=== PATIENT | female | born 1930 | race Caucasian/White ===

== ENCOUNTER 2018-03-03 08:31 | Emergency (ER) | payer MEDICARE, OTHER ==
[2018-03-03 08:35] VITALS: BP 159/75; PULSE 64; RESP 18; TEMP 98.1
--- NOTE | 2018-03-03 08:43 | ED ---
Skin/Abscess/FB HPI - General Chief complaint: Skin/Abscess/Foreign Body Stated complaint: BUG BITE RIGHTT FOOT Time Seen by Provider: 03/03/18 08:36 Source: patient, RN notes reviewed Mode of arrival: ambulatory Limitations: no limitations - History of Present Illness Initial comments: 87-year-old female presents emergency Department chief complaint of right foot pain and rash. Patient states that it's red, swollen. Patient states that she has small insect bite which has gotten worse. She states only hurts in the top of her foot. She denies any trauma. She states that the started with a small bump and has spread. She states that she is not a diabetic. She's been trying cool compresses with no relief. Patient reports no calf pain no ankle pain. - Related Data Home Medications Medication Instructions Recorded Confirmed Levothyroxine Sodium [Synthroid] 112 mcg PO DAILY 08/20/14 08/20/14 Losartan/Hydrochlorothiazide 1 each PO DAILY 08/20/14 08/20/14 [Losartan-Hctz 50-12.5 mg Tab] Metoprolol Succinate [Toprol XL] 100 mg PO DAILY 08/20/14 08/20/14 Warfarin [Coumadin] 2.5 mg PO DIRECTED 08/20/14 08/20/14 Warfarin [Coumadin] 5 mg PO DIRECTED 08/20/14 08/20/14 Previous Rx's Medication Instructions Recorded Cephalexin [Keflex] 500 mg PO Q6HR #28 cap 03/03/18 predniSONE 50 mg PO DAILY #3 tab 03/03/18 Allergies Allergy/AdvReac Type Severity Reaction Status Date / Time No Known Allergies Allergy Verified 03/03/18 08:35 Review of Systems ROS Statement: Those systems with pertinent positive or pertinent negative responses have been documented in the HPI. ROS Other: All systems not noted in ROS Statement are negative. Past Medical History Past Medical History: Deep Vein Thrombosis (DVT), Hypertension, Thyroid Disorder History of Any Multi-Drug Resistant Organisms: None Reported Past Surgical History: Appendectomy Past Psychological History: No Psychological Hx Reported Smoking Status: Never smoker Past Alcohol Use History: None Reported Past Drug Use History: None Reported General Exam Limitations: no limitations General appearance: alert, in no apparent distress Head exam: Present: atraumatic, normocephalic, normal inspection Respiratory exam: Present: normal lung sounds bilaterally. Absent: respiratory distress, wheezes, rales, rhonchi, stridor Cardiovascular Exam: Present: regular rate, normal rhythm, normal heart sounds. Absent: systolic murmur, diastolic murmur, rubs, gallop, clicks Extremities exam: Present: other (Pulses equal bilaterally there is mild tenderness over the area of erythema) Course Vital Signs 03/03/18 08:33 Temperature 98.1 F Pulse Rate 64 Respiratory 18 Rate Blood Pressure 159/75 O2 Sat by Pulse 96 Oximetry Medical Decision Making - Medical Decision Making 84-year-old female presented for pain and rash to her right foot. Patient appears to have localized reaction with cellulitis from insect bite. Patient was placed on 3 days of prednisone and 7 days of Keflex. Patient will continue Tylenol and cool compresses. She'll follow-up with her PCP and return for any worsening symptoms. Disposition Clinical Impression: Insect bite of foot with local reaction, Cellulitis of foot Disposition: HOME SELF-CARE Condition: Stable Instructions: Cellulitis (ED) Additional Instructions: Please return to the Emergency Department if symptoms worsen or any other concerns. Prescriptions: Cephalexin [Keflex] 500 mg PO Q6HR #28 cap predniSONE 50 mg PO DAILY #3 tab Is patient prescribed a controlled substance at d/c from ED?: No Referrals: Garcia Hastings MD [Primary Care Provider] - 1-2 days Time of Disposition: 08:43
== END 2018-03-03 08:51 | disposition home or self-care (01) ==
LOC: EC 08:31
DX: S90.861A Insect bite (nonvenomous), right foot, initial encounter (principal); L03.115 Cellulitis of right lower limb; I10 Essential (primary) hypertension; E07.9 Disorder of thyroid, unspecified; Z86.718 Personal history of other venous thrombosis and embolism; Z79.01 Long term (current) use of anticoagulants; Z79.899 Other long term (current) drug therapy; W57.XXXA Bitten or stung by nonvenomous insect and other nonvenomous arthropods, initial encounter; Y92.009 Unspecified place in unspecified non-institutional (private) residence as the place of occurrence of the external cause
CPT/HCPCS: 99282

== ENCOUNTER 2022-01-04 19:32 | Inpatient (IN) | payer MEDICARE ==
--- NOTE | 2022-01-04 21:00 | XR ---
EXAMINATION TYPE: XR lumbar spine 2 or 3V DATE OF EXAM: 01/04/2022 COMPARISON: NONE HISTORY: TECHNIQUE: 3 views FINDINGS: Back pain IMPRESSION: The lumbar vertebra have normal alignment. There is degenerative mild disc space narrowin g throughout the lumbar spine. No significant compression deformity. Posterior elements are intact. S acroiliac joints are intact. Abdominal aorta is atheromatous. IMPRESSION: Multilevel spondylotic changes. No fracture
[2022-01-04] MEDS ORDERED: MORPHINE SULFATE 4 MG/ML SYRINGE IM STA (21:24)
--- NOTE | 2022-01-04 21:27 | ED ---
Back Pain HPI - General Chief Complaint: Back Pain/Injury Stated Complaint: Back Pain Time Seen by Provider: 01/04/22 20:44 Source: patient Limitations: no limitations - History of Present Illness Complaint: back pain Onset/Timin -: hour(s) Similar Symptoms Previously: No Place: home Radiation: buttocks Severity: moderate Quality: other (unAble to characterize) Consistency: constant Worsens With: movement, sitting upright Associated Symptoms: denies other symptoms - Related Data Home Medications Medication Instructions Recorded Confirmed Levothyroxine Sodium [Synthroid] 112 mcg PO DAILY 08/20/14 08/20/14 Losartan/Hydrochlorothiazide 1 each PO DAILY 08/20/14 08/20/14 [Losartan-Hctz 50-12.5 mg Tab] Metoprolol Succinate [Toprol XL] 100 mg PO DAILY 08/20/14 08/20/14 Warfarin [Coumadin] 2.5 mg PO DIRECTED 08/20/14 08/20/14 Warfarin [Coumadin] 5 mg PO DIRECTED 08/20/14 08/20/14 Previous Rx's Medication Instructions Recorded Cephalexin [Keflex] 500 mg PO Q6HR #28 cap 03/03/18 predniSONE 50 mg PO DAILY #3 tab 03/03/18 Allergies Allergy/AdvReac Type Severity Reaction Status Date / Time No Known Allergies Allergy Verified 01/04/22 19:37 Review of Systems ROS Statement: Those systems with pertinent positive or pertinent negative responses have been documented in the HPI. ROS Other: All systems not noted in ROS Statement are negative. Constitutional: Denies: fever, chills, weakness Respiratory: Denies: cough, dyspnea Cardiovascular: Denies: chest pain, edema Gastrointestinal: Denies: abdominal pain, vomiting, diarrhea, constipation Genitourinary: Denies: dysuria, hematuria Musculoskeletal: Reports: as per HPI, back pain Skin: Denies: rash Neurological: Denies: weakness, numbness, paresthesias Past Medical History Past Medical History: Deep Vein Thrombosis (DVT), Hypertension, Thyroid Disorder History of Any Multi-Drug Resistant Organisms: None Reported Past Surgical History: Appendectomy Past Psychological History: No Psychological Hx Reported Smoking Status: Never smoker Past Alcohol Use History: None Reported Past Drug Use History: None Reported General Exam Limitations: no limitations General appearance: alert, in no apparent distress Head exam: Present: atraumatic, normocephalic Eye exam: Present: normal appearance. Absent: scleral icterus, conjunctival injection Respiratory exam: Present: normal lung sounds bilaterally. Absent: respiratory distress, wheezes, rales, rhonchi, stridor Cardiovascular Exam: Present: regular rate, normal rhythm, normal heart sounds. Absent: systolic murmur, diastolic murmur, rubs, gallop GI/Abdominal exam: Present: soft. Absent: distended, tenderness, guarding, rebound, rigid, mass, pulsatile mass Extremities exam: Present: normal inspection, normal capillary refill. Absent: pedal edema, calf tenderness Back exam: Absent: CVA tenderness (R), CVA tenderness (L), muscle spasm, paraspinal tenderness, vertebral tenderness Neurological exam: Present: alert, reflexes normal. Absent: motor sensory deficit Skin exam: Present: warm, dry, intact, normal color. Absent: rash Course Vital Signs 01/04/22 19:34 Temperature 98.0 F Pulse Rate 77 Respiratory 16 Rate Blood Pressure 178/83 O2 Sat by Pulse 95 Oximetry Disposition Clinical Impression: Back pain, Inability to walk Disposition: ADMITTED IP TO THIS HOSP Condition: Fair Instructions (If sedation given, give patient instructions): Acute Low Back Pain (ED) Is patient prescribed a controlled substance at d/c from ED?: No Referrals: Garcia Hastings MD [Primary Care Provider] - 1-2 days Time of Disposition: 00:00
--- NOTE | 2022-01-04 22:15 | XR ---
EXAMINATION TYPE: XR pelvis AP view DATE OF EXAM: 01/04/2022 COMPARISON: NONE HISTORY: Pain TECHNIQUE: Single view FINDINGS: Pelvic ring is intact. Proximal femurs are intact. Acetabula appear intact. Sacroiliac join ts appear normal. IMPRESSION: Negative exam. No fracture.
--- NOTE | 2022-01-04 22:47 | CT ---
EXAMINATION TYPE: CT lumbar spine wo con DATE OF EXAM: 01/04/2022 COMPARISON: HISTORY: low back pain CT DLP: 664.7 mGycm Automated exposure control for dose reduction was used. Images obtained from T12 through S2 vertebra with no contrast. Lumbar vertebrae have normal alignment. There is osteopenia. There is mild narrowing of lumbar disc s paces. No compression fracture. There is some facet arthropathy in the lower lumbar spine. Abdominal aorta is atheromatous. There is no lumbar paraspinal mass. No evidence of focal bone destruction. Sac roiliac joints are intact. IMPRESSION: Multilevel spondylotic changes of the lumbar spine. No fracture seen.
[2022-01-05] MEDS ORDERED: Acetaminophen-Codeine 300-30mg TAB PO PRN (00:12)
[2022-01-05] MEDS ORDERED: MAG HYDROX/AL HYDROX/SIMETH 30 ML CUP PO PRN (00:12)
[2022-01-05] MEDS ORDERED: ACETAMINOPHEN TAB 325 MG TAB PO PRN (00:12)
[2022-01-05] MEDS ORDERED: NALOXONE 0.4 MG/ML 1 ML VIAL IV PRN (00:12)
[2022-01-05] MEDS ORDERED: MAGNESIUM HYDROXIDE 2,400 MG/10 ML CUP PO PRN (00:12)
--- NOTE | 2022-01-05 00:51 | CT ---
EXAM: CT Head Without Intravenous Contrast CLINICAL HISTORY: ITS.REASON CT Reason: unsteady gait/incontinence TECHNIQUE: Axial computed tomography images of the head/brain without intravenous contrast. CTDI is 49.2 mGy and DLP is 1066.4 mGy-cm. This CT exam was performed using one or more of the following dose reduction techniques: automated exposure control, adjustment of the mA and/or kV according to patient size, and/or use of iterative reconstruction technique. COMPARISON: Comparison made to prior head CT from August 20, 2014.. FINDINGS: Brain: Unremarkable. No hemorrhage. Mild to moderate nonspecific white matter changes. No edema. Ventricles: Unremarkable. No ventriculomegaly. Bones/joints: Benign exostosis of the left frontal bone. No acute fracture. Soft tissues: Bilateral lens replacements. Sinuses: Unremarkable as visualized. No acute sinusitis. Mastoid air cells: Unremarkable as visualized. No mastoid effusion. IMPRESSION: No evidence of acute intracranial pathology.
[2022-01-05 03:05] LABS: Basophils # (A) 0.1 k/uL (0-0.2); Basophils % (A) 1 %; Eosinophils # (A) 0.3 k/uL (0-0.7); Eosinophils % (A) 3 %; HCT 36.7 % (34.0-46.0); HGB 12.2 gm/dL (11.4-16.0); Lymphocytes # (A) 1.1 k/uL (1.0-4.8); Lymphocytes % (A) 12 %; MCHC 33.3 g/dL (31.0-37.0); MCV 102.2 fL (80.0-100.0); Macrocytosis Slight; Mean Platelet Volume 7.7; Monocytes # (A) 0.5 k/uL (0-1.0); Monocytes % (A) 5 %; Neutrophils # (A) 7.5 k/uL (1.3-7.7); Neutrophils % (A) 78 %; Platelet Count 202 k/uL (150-450); RBC 3.59 m/uL (3.80-5.40); RDW 12.7 % (11.5-15.5); WBC 9.5 k/uL (3.8-10.6)
[2022-01-05 03:27] LABS: Calcium 8.4 mg/dL (8.4-10.2)
[2022-01-05 03:33] LABS: Potassium 4.5 mmol/L (3.5-5.1)
[2022-01-05] MEDS: SODIUM CHLORIDE 0.9% 1,000 ML IV SCH (04:42)
[2022-01-05 10:34] LABS: Appearance,Urine Clear (Clear); Bilirubin,Urine Negative (Negative); Blood,Urine Moderate (Negative); Color,Urine Yellow; Glucose,Urine (UA) Negative (Negative); Ketones,Urine Negative (Negative); Leukocyte Esterase,Urine Negative (Negative); Mucus,Urine Rare /hpf; Nitrite,Urine Negative (Negative); Protein,Urine Negative (Negative); RBC,Urine 4 /hpf (0-5); Specific Gravity,Urine 1.014 (1.001-1.035); Squamous Epithelial Cell,Urine <1 /hpf (0-4); Urobilinogen,Urine <2.0 mg/dL (<2.0); WBC,Urine <1 /hpf (0-5)
[2022-01-05 19:32] LABS: INR 3.6 (<1.2); Prothrombin Time 35.4 sec (9.0-12.0)
[2022-01-05] MEDS ORDERED: WARFARIN 0.5 MG TAB PO ONE (20:00)
--- NOTE | 2022-01-05 21:35 | HP ---
HISTORY AND PHYSICAL CHIEF COMPLAINTS: Back pain and difficulty in walking. HISTORY OF PRESENT ILLNESS: This 89-year-old woman with a past medical history of DVT, history of hypertension, apparently had a fall and the patient was complaining of severe back pain and progressively the ambulation is also being difficult for the patient. Patient also complains of weakness and is admitted for further evaluation and treatment. CT scan of the back showed multi-level DJD. There is no history of any fever, rigors or chills. No history of headache, loss of consciousness, seizures. PAST MEDICAL HISTORY: DVT, hypertension. HOME MEDICATIONS: Reviewed. They include Coumadin. Doses and the rest of the medications are noted. ALLERGIES: NONE. FAMILY HISTORY: No history of heart disease or strokes in the family. SOCIAL HISTORY: No history of smoking. REVIEW OF SYSTEMS: Fourteen-point review of systems negative except as mentioned earlier. PHYSICAL EXAMINATION: Pulse 78, blood pressure 151/50, respirations 16. HEENT: Conjunctivae normal. NECK: No jugular venous distention. CARDIOVASCULAR: S1, S2 muffled. RESPIRATION: Breath sounds diminished at the bases. No rhonchi. No crackles. ABDOMEN: Soft, nontender. No mass palpable. LEGS: No edema. No swelling. NERVOUS SYSTEM: Higher functions as mentioned earlier. Moves upper limbs normally. Lower limbs appear to be grade 3 to 4 power. Reflexes are diminished. Gait not tested. Back pain present. SKIN: No ulcer, rash, bleeding. JOINTS: No active deforming arthropathy. LABS: WBC 9.2, hemoglobin 12.2. ASSESSMENT: 1. Intractable low back pain secondary to fall and severe degenerative joint disease. 2. Lower leg weakness and gait dysfunction. 3. Deep vein thrombosis. 4. Hypertension. RECOMMENDATIONS AND DISCUSSION: In this 89-year-old woman who presented with multiple complex medical issues, we will monitor the patient closely. I recommend resuming the home medications, symptomatic treatment of the pain. I also recommend orthopedic surgery as well as neurology evaluations. The prognosis is guarded. Further recommendations to follow. See orders for further details. INR is 3.6. Will hold the Coumadin and monitor INR closely. MMODL / IJN: [id number] / MTDD
[2022-01-05 22:19] LABS: INR 3.4 (<1.2); Prothrombin Time 34.1 sec (9.0-12.0)
[2022-01-06] MEDS: SODIUM CHLORIDE 0.9% 1,000 ML IV SCH ×2 (02:51→21:56)
[2022-01-06 06:02] LABS: INR 3.2 (<1.2); Prothrombin Time 31.6 sec (9.0-12.0)
[2022-01-06] MEDS: LEVOTHYROXINE 112 MCG TAB PO SCH (06:17)
[2022-01-06 09:18] LABS: Basophils # (A) 0.03 X 10*3/uL (0.00-0.10); Basophils % (A) 0.4 %; Eosinophils # (A) 0.28 X 10*3/uL (0.04-0.35); Eosinophils % (A) 3.7 %; HCT 33.9 % (37.2-46.3); HGB 11.1 g/dL (12.0-15.0); Immature Grans, Automated 0.5 %; Lymphocytes # (A) 0.73 X 10*3/uL (0.90-5.00); Lymphocytes % (A) 9.5 %; MCH 32.9 pg (27.0-32.0); MCHC 32.7 g/dL (32.0-37.0); MCV 100.6 fL (80.0-97.0); Mean Platelet Volume 10.7 fL (9.5-12.2); Monocytes # (A) 0.61 X 10*3/uL (0.20-1.00); NRBC Per 100 WBC 0 /100 WBCS (0.0-0.0); Neutrophils # (A) 5.97 X 10*3/uL (1.80-7.70); Neutrophils % (A) 77.9 %; Platelet Count 185 X 10*3/uL (140-440); RBC 3.37 X 10*6/uL (4.10-5.20); WBC 7.66 X 10*3/uL (4.50-10.00)
[2022-01-06] MEDS: METOPROLOL TARTRATE 50 MG TAB PO SCH (09:31)
[2022-01-06] MEDS: hydroCHLOROthiazide 12.5 MG CAP PO SCH (09:31)
[2022-01-06] MEDS: VALSARTAN 80 MG TAB PO SCH (09:31)
[2022-01-06 10:23] LABS: African American GFR (CKD) 38.5 (60.0-200.0); Anion Gap 12.2 mmol/L (10.00-18.00); BUN/Creat Ratio 22.5 Ratio (12.00-20.00); Blood Urea Nitrogen 31.5 mg/dL (9.0-27.0); Calcium 8.3 mg/dL (8.7-10.3); Carbon Dioxide 23.8 mmol/L (20.0-27.5); Non-African American GFR(CKD) 33.2 (60.0-200.0); Potassium 3.9 mmol/L (3.5-5.5)
--- NOTE | 2022-01-06 10:48 | P.PN ---
Subjective Progress Note Date: 01/06/22 HISTORY OF PRESENT ILLNESS This is an 89-year-old female patient of Dr. Garcia Hastings with past medical history of DVT, hypothyroidism, and hypertension, presented to [facility] due to back pain following a fall with pain radiating down her leg. CAT scan of the lumbar spine revealed multilevel spondylotic changes of the lumbar spine. No fracture seen. INR 3.6 and Coumadin has been on hold. She continues to complain of pain in the lumbar area with radiation down the leg . Consult added for pain management. There is a consult in place already with Dr. Anne for weakness and also Dr. Hackett for back pain. Consult with PT and OT added. INR today is 3.2. Patient may be candidate for trigger point injection by pain management. Patient is adamant that she does not want rehab and does not want home care. Anticipate discharge home tomorrow. REVIEW OF SYSTEMS Constitutional: No fever, no chills, no night sweats. No weight change. No weakness, fatigue or lethargy. No daytime sleepiness. EENT: No headache. No blurred vision or double vision, no loss of vision. No loss of Hearing, no ringing in the ears, no dizziness. No nasal drainage or congestion. No epistaxis. No sore throat. Lungs: No shortness of breath, cough, no sputum production. No wheezing. Cardiovascular: No chest pain, no lower extremity edema. No palpitations. No paroxysmal nocturnal dyspnea. No orthopnea. No lightheadedness or dizziness. No syncopal episodes. Abdominal: No abdominal pain. No nausea, vomiting. No diarrhea. No constipation. No bloody or tarry stools. No loss of appetite. Genitourinary: No dysuria, increased frequency, urgency. No urinary retention. Musculoskeletal: No myalgias. No muscle weakness, no gait dysfunction, no frequent falls. Lumbar back pain. No neck pain. Integumentary: No wounds, no lesions. No rash or pruritus. No unusual bruisin g. No change in hair or nails. Neurologic: No aphasia. No facial droop. No change in mentation. No head injury. No headache. No paralysis. No paresthesia. Psychiatric: No depression. No anxiety. No mood swings. Endocrine: No abnormal blood sugars. No weight change. No excessive sweating or thirst. No cold intolerance. PHYSICAL EXAMINATION Gen: This is an 89-year-old female. She is resting in chair and in no acute distress. No respiratory distress noted. HEENT: Head is atraumatic, normocephalic. Pupils equal, round. Sclerae is anicteric. NECK: Supple. No JVD. No lymphadenopathy. No thyromegaly. LUNGS: Clear to auscultation. No wheezes or rhonchi. No intercostal retract ions. HEART: Regular rate and rhythm. No murmur. ABDOMEN: Soft. Bowel sounds are present. No masses. No tenderness. EXTREMITIES: No pedal edema. No calf tenderness. Tenderness in the lumbar area. NEUROLOGICAL: Patient is awake, alert and oriented x3. Cranial nerves 2 through 12 are grossly intact. ASSESSMENT AND PLAN 1. Intractable back pain secondary to fall and severe degenerative joint d isease.. 2. Lower leg weakness and gait dysfunction. PT and OT consults. 3. History of DVT. Patient is on Coumadin, continue to monitor INR. 4. Hypercoagulopathy. Coumadin has been on hold and will be resumed, pharmacy is dosing.. 5. Hypertension. 6. GI prophylaxis. Protonix. 7. DVT prophylaxis. Coumadin. DISCHARGE PLAN Home on Thursday. Impression and plan of care have been directed as dictated by the signing physician. Frances Garcia nurse practitioner acting as scribe for signing physician. Objective - Vital Signs Vital signs: Vital Signs Temp 98.5 F 01/06/22 04:34 Pulse 82 01/06/22 04:34 Resp 16 01/06/22 04:34 BP 152/67 01/06/22 04:34 Pulse Ox 92 L 01/06/22 04:34 FiO2 Intake & Output 01/05/22 01/06/22 01/06/22 18:59 06:59 18:59 Intake Total 240 Output Total 700 Balance -460 Intake: Oral 240 Output: Urine 700 Other: # Voids 2 1 1 - Labs CBC & Chem 7: 01/06/22 05:41 01/05/22 02:37 Labs: Abnormal Lab Results - Last 24 Hours (Table) 01/05/22 01/05/22 01/05/22 Range/Units 00:10 19:10 21:44 PT 35.4 H 34.1 H (9.0-12.0) sec INR 3.6 H 3.4 H (<1.2) Urine Blood Moderate H (Negative) Urine Mucus Rare H (None) /hpf 01/06/22 Range/Units 05:41 PT 31.6 H (9.0-12.0) sec INR 3.2 H (<1.2) Urine Blood (Negative) Urine Mucus (None) /hpf
--- NOTE | 2022-01-06 12:48 | P.CNOR ---
History of Present Illness - [facility] Consult date: 01/06/22 Requesting physician: Lisa Laguerre Consult reason: other (Right buttock pain and low back pain) History of present illness: Patient is a very pleasant 89-year-old female who is seen and examined at the bedside for further evaluation in regards to her lumbar spine. Patient had s ustained a fall on 01/04/2022 on her right buttock. She presented to [facility] for further evaluation. Currently, she states she has some pain in her right buttock and denies any other pain. She denies any lower extremity weakness or radiculopathy. She denies any low back pain. She does not have a history of surgical intervention at her lumbar spine. Patient states she has lived independently at home over the past 45 years without difficulty. She states she was seen and examined by pain management. There was some discussion about a trigger point injection. Patient states she would like to have the injection and be discharged home. Patient does not feel she needs any further treatment or evaluation from an orthopedic spine standpoint. Patient does not feel she would need any surgical intervention regards to her lumbar spine. Prior to her fall, she was not experiencing any significant pain towards her right buttock. Multiple imaging modalities were taken during her evaluation in the hospital with evidence of degenerative changes in her lumbar spine withou t evidence of fracture. She does not have evidence of fracture at her pelvis. Patient states she has been able to ambulate to the restroom without significant difficulty. She denies any hip pain bilaterally. 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 Her INR this morning was 3.2. Nursing states patient was confused today but patient is answering questions well and appropriately at the bedside. Consultation has been placed with neurology as well. Past Medical History Past Medical History: Deep Vein Thrombosis (DVT), Hypertension, Thyroid Disorder History of Any Multi-Drug Resistant Organisms: None Reported Past Surgical History: Appendectomy Past Psychological History: No Psychological Hx Reported Smoking Status: Never smoker Past Alcohol Use History: None Reported Past Drug Use History: None Reported Medications and Allergies Home Medications Medication Instructions Recorded Confirmed Type Levothyroxine Sodium [Synthroid] 112 mcg PO DAILY 08/20/14 01/05/22 History Warfarin [Coumadin] 2.5 mg PO TUWETHSA 08/20/14 01/05/22 History Warfarin [Coumadin] 5 mg PO MOFR 08/20/14 01/05/22 History Metoprolol Tartrate [Lopressor] 100 mg PO DAILY 01/05/22 01/05/22 History Valsartan/Hydrochlorothiazide 1 tab PO DAILY 01/05/22 01/05/22 History [Valsartan-Hctz 80-12.5 mg Tab] Allergies Allergy/AdvReac Type Severity Reaction Status Date / Time No Known Allergies Allergy Verified 01/05/22 12:06 Physical Examination Physical exam: Patient is awake, alert, and oriented 3 Vital signs stable Good chest excursion with deep inspiration and expiration Patient changes positions well and is able to sit up without any significant difficulty independently Examination of lumbar spine reveals skin is intact with no abrasions, lacerations, or bruises; no erythema, purulence or signs of infection No pal palpation over the lumbosacral spine Dorsiflexion, plantarflexion, and extensor hallucis longus positive sustained bilaterally Lower extremity strength 5/5 bilaterally Straight leg test negative bilateral lower extremities No signs or symptoms of DVT; no calf pain No pain with internal and external rotation of the hips bilaterally Neurovascularly intact Results Pertinent studies: CT of the lumbar spine taken on 01/04/2022: L1-2 facet arthropathy and central stenosis; L2-3 disc protrusion, facet arthropathy, and degenerative disc disease resulting in moderate severe central canal stenosis; L3-4 spondylolisthesis, disc protrusion, facet arthropathy, and degenerative disc disease resulting in [id number] central canal stenosis; L4-5 and L5-S1 apparent autofusion; L 4-5 significant facet arthropathy; no evidence of vertebral body compression fracture X-ray the pelvis taken on 01/04/2022: Hip joint spacing appears to be medically maintained bilaterally; no evidence of fracture dislocation within the pelvis X-rays of the lumbar spine taken on 01/04/2022: Significant degenerative changes throughout the lumbar spine; L2-L3 degenerative disc disease; L3-4 degenerative disc disease and spondylolisthesis; L4-5 and L5-S1 apparent autofusion; no evidence of vertebral body compression fracture - Labs Labs: Abnormal Lab Results - Last 24 Hours (Table) 01/05/22 01/05/22 01/06/22 Range/Units 19:10 21:44 05:41 RBC 3.37 L (4.10-5.20) X 10*6/uL Hgb 11.1 L (12.0-15.0) g/dL Hct 33.9 L (37.2-46.3) % MCV 100.6 H (80.0-97.0) fL MCH 32.9 H (27.0-32.0) pg Lymphocytes # 0.73 L (0.90-5.00) X 10*3/uL PT 35.4 H 34.1 H (9.0-12.0) sec INR 3.6 H 3.4 H (<1.2) BUN (9.0-27.0) mg/dL Est GFR (CKD-EPI)AfAm (60.0-200.0) Est GFR (CKD-EPI)NonAf (60.0-200.0) BUN/Creatinine Ratio (12.00-20.00) Ratio Glucose (70-110) mg/dL Calcium (8.7-10.3) mg/dL 01/06/22 01/06/22 Range/Units 05:41 05:41 RBC (4.10-5.20) X 10*6/uL Hgb (12.0-15.0) g/dL Hct (37.2-46.3) % MCV (80.0-97.0) fL MCH (27.0-32.0) pg Lymphocytes # (0.90-5.00) X 10*3/uL PT 31.6 H (9.0-12.0) sec INR 3.2 H (<1.2) BUN 31.5 H (9.0-27.0) mg/dL Est GFR (CKD-EPI)AfAm 38.5 L (60.0-200.0) Est GFR (CKD-EPI)NonAf 33.2 L (60.0-200.0) BUN/Creatinine Ratio 22.50 H (12.00-20.00) Ratio Glucose 143 H (70-110) mg/dL Calcium 8.3 L (8.7-10.3) mg/dL H & H 01/05/22 01/06/22 Range/Units 02:37 05:41 Hgb 12.2 11.1 L (11.4-16.0) gm/dL Hct 36.7 33.9 L (34.0-46.0) % Coagulation 01/05/22 01/05/22 01/06/22 Range/Units 19:10 21:44 05:41 INR 3.6 H 3.4 H 3.2 H (<1.2) Result Diagrams: 01/06/22 05:41 01/06/22 05:41 Assessment and Plan Assessment: Assessment: Right buttock pain Status post fall Lumbar degenerative disc disease Lumbar stenosis Lumbar facet arthropathy Lumbar disc protrusion L3-4 spondylolisthesis L4-5 and L5-S1 autofusion Hypertension History of DVT currently on Coumadin Hypercoagulopathy with an INR of 3.2 (1) Lumbar stenosis Current Visit: Yes Status: Acute Code(s): M48.061 - SPINAL STENOSIS, LUMBAR REGION WITHOUT NEUROGENIC EULALIO SNOMED Code(s): 63465751 (2) Lumbar degenerative disc disease Current Visit: Yes Status: Acute Code(s): M51.36 - OTHER INTERVERTEBRAL DISC DEGENERATION, LUMBAR REGION SNOMED Code(s): 73733518 (3) Lumbar facet arthropathy Current Visit: Yes Status: Acute Code(s): M47.816 - SPONDYLOSIS W/O MYELOPATHY OR RADICULOPATHY, LUMBAR REGION SNOMED Code(s): 968536573 (4) Lumbar disc disease Current Visit: Yes Status: Acute Code(s): M51.9 - UNSP THORACIC, THORACOLUM AND LUMBOSACR INTVRT DISC DISORDER SNOMED Code(s): 827780077 (5) Spondylolisthesis, lumbar region Current Visit: Yes Status: Acute Code(s): M43.16 - SPONDYLOLISTHESIS, LUMBAR REGION SNOMED Code(s): 489590565298015 (6) Status post fall Current Visit: Yes Status: Acute Code(s): Z91.81 - HISTORY OF FALLING SNOMED Code(s): 976561031 (7) Right buttock pain Current Visit: Yes Status: Acute Code(s): M79.18 - MYALGIA, OTHER SITE SNOMED Code(s): 351720249 (8) Hypertension Current Visit: Yes Status: Acute Code(s): I10 - ESSENTIAL (PRIMARY) HYPERTENSION SNOMED Code(s): 33092588 (9) History of DVT (deep vein thrombosis) Current Visit: Yes Status: Acute Code(s): Z86.718 - PERSONAL HISTORY OF OTHER VENOUS THROMBOSIS AND EMBOLISM SNOMED Code(s): 372797245 (10) Current use of skilled nursing anticoagulation Current Visit: Yes Status: Acute Code(s): Z79.01 - RESIDENTIAL (CURRENT) USE OF ANTICOAGULANTS SNOMED Code(s): 421348670 (11) Hypercoagulopathy Current Visit: Yes Status: Acute Code(s): D68.59 - OTHER PRIMARY THRO MBOPHILIA SNOMED Code(s): 07846052 Plan: Plan: 1. After further discussion with the patient, physical examination of the patient, and reviewing the imaging, we will currently plan to continue with conservative treatment regards to her lumbar spine. Patient states she has lived independently over the past 45 years without difficulty. She did sustain a fall on 01/04/2022 and has had increased right buttock pain since that time. She states she is not currently experiencing any low back pain, lower extremity weakness, or lower extremity radiculopathy. She denies any hip pain bilaterally. She has been able to ambulate to the restroom. Patient states she does not wish for further treatment or evaluation specifically for her lumbar spine and does not feel she has any symptoms in regards to her lumbar spine. She does admit to right buttock pain since falling on her right buttock. Patient has been seen and examined by pain management and there has been discussion about a trigger point injection. Patient does states she would like to proceed forward with this injection when cleared to do so. We did discuss we would not plan for further imaging or evaluation during her admission to the hospital. Patient does not feel she needs further treatment or evaluation from an orthopedic spine standpoint. From an orthopedic spine standpoint, patient is clear for discharge. We will currently plan have the patient follow up in the outpatient setting on an as-needed basis. Patient states she does not wish her feel she would need any surgical intervention in regards to her lumbar spine. Patient may follow-up with Pepe Yoo PA-C or Dr. Doug Hackett at [facility] on an as-needed basis following discharge. 2. Patient will continue be seen and examined by multiple other medical providers including medicine and pain management Time with Patient: Greater than 30 (Including obtaining history, physical examination, reviewing of imaging, and dictation.)
--- NOTE | 2022-01-06 15:05 | P.PAINPG ---
Objective - Vital Signs Vital signs: Vital Signs Temp 98.5 F 01/06/22 04:34 Pulse 63 01/06/22 11:20 Resp 16 01/06/22 11:20 BP 98/61 01/06/22 11:20 Pulse Ox 96 01/06/22 11:20 FiO2 Intake & Output 01/05/22 01/06/22 01/06/22 18:59 06:59 18:59 Intake Total 240 Output Total 700 Balance -460 Intake: Oral 240 Output: Urine 700 Other: # Voids 2 1 1 - Labs CBC & Chem 7: 01/06/22 05:41 01/06/22 05:41 Labs: Abnormal Lab Results - Last 24 Hours (Table) 01/05/22 01/05/22 01/06/22 Range/Units 19:10 21:44 05:41 RBC 3.37 L (4.10-5.20) X 10*6/uL Hgb 11.1 L (12.0-15.0) g/dL Hct 33.9 L (37.2-46.3) % MCV 100.6 H (80.0-97.0) fL MCH 32.9 H (27.0-32.0) pg Lymphocytes # 0.73 L (0.90-5.00) X 10*3/uL PT 35.4 H 34.1 H (9.0-12.0) sec INR 3.6 H 3.4 H (<1.2) BUN (9.0-27.0) mg/dL Est GFR (CKD-EPI)AfAm (60.0-200.0) Est GFR (CKD-EPI)NonAf (60.0-200.0) BUN/Creatinine Ratio (12.00-20.00) Ratio Glucose (70-110) mg/dL Hemoglobin A1c (0.0-6.0) % Calcium (8.7-10.3) mg/dL 01/06/22 01/06/22 01/06/22 Range/Units 05:41 05:41 05:41 RBC (4.10-5.20) X 10*6/uL Hgb (12.0-15.0) g/dL Hct (37.2-46.3) % MCV (80.0-97.0) fL MCH (27.0-32.0) pg Lymphocytes # (0.90-5.00) X 10*3/uL PT 31.6 H (9.0-12.0) sec INR 3.2 H (<1.2) BUN 31.5 H (9.0-27.0) mg/dL Est GFR (CKD-EPI)AfAm 38.5 L (60.0-200.0) Est GFR (CKD-EPI)NonAf 33.2 L (60.0-200.0) BUN/Creatinine Ratio 22.50 H (12.00-20.00) Ratio Glucose 143 H (70-110) mg/dL Hemoglobin A1c 6.1 H (0.0-6.0) % Calcium 8.3 L (8.7-10.3) mg/dL PQRS Measure Charge Sheet Comment: HISTORY OF PRESENT ILLNESS: 89 yr old inpatient female as a referral from Dr. Martinez presents today with severe acute R buttock pain s/p fall for an evaluation. Pt states her pain level waxes & wanes in intensity based on activity but it is a constant 5/10, dull/achy/sore in the R aspect of her lumbosacral spine without radiation of pain. Pain is provoked with bending, twisting or sitting in one position for periods of 10 minutes or more. Pain is alleviated with medications, topicals, injections in the past, heat, repositioning and rest. PMH: DVT, HTN, Hypothyroidism PSH: Appendectomy SH: Negative x 3. Lives alone. FH: Non contributory All: NKDA Meds: See list REVIEW OF ORGAN SYSTEMS: CONSTITUTIONAL: No fevers or chills. No recent weight loss. NEUROLOGICAL: + numbness and tingling along the distal extremities. No seizure disorders or headaches. MUSCULOSKELETAL: + pain PSYCHIATRIC: Denies current depression or suicidal thoughts. Physical Examinations : Constitutional : Cooperative , not in acute distress . Neurologic : Cranial nerve II to XII intact. No focal neurological deficits. Psychiatric : alert & oriented x 3. Matching mood & appropriate affect. Judgment & insight intact. Musculoskeletal : +R L5-S1 paraspinal TTP w R gluteus cristian TTP Cervical Spine Motor strength in the deltoid and biceps: Normal right side. Normal Left side Motor strength biceps and the wrist extensors: Normal right side . Normal left side Motor strength in the triceps muscle: Normal right side. Normal left side Deep tendon reflexes: Normal at the biceps. Normal at Brachioradialis. Normal at triceps Vertebral body tenderness to deep palpation over Cervical facet loading test: positive bilaterally Spurling test: positive bilaterally Neck distraction test: positive bilaterally Shruthi sign: positive bilaterally Lumbar spine Motor strength lower extremities ,thigh and legs 5/5 Right side , 5/5 Left side Deep tendon reflexes : Normal Knee Jerk. Normal Ankle Jerk Vertebral body tenderness over Lumbar facet Loading Test: positive Right / positive Left Range of motion of the lumbar spine Flexion 30 degrees, extension 10 degrees Straight Leg Raise test: Left/ Right positive at degree Angelina test: positive right / positive left. Severe tenderness over the Sacroiliac joint on the Right / Left sides Gaenslen test: positive bilaterally Seated flexion test: positive holden aterally. Sacral spine : Severe tenderness over the Sacroiliac joint: right side / left side Range of motion: Flexion of the lumbar spine <60 degrees Range of motion: Extension of the lumbar spine <20 degrees Gaenslen's Test positive Cade's Test positive Angelina test: positive right side / left side Thigh Thrust Test Sacral Thrust Test Imaging: CT scan of the lumbar spine reviewed Assessment/ Plan : Lumbar stenosis, Lumbar DDD, R buttock contusion s/p fall Recommendation of TPIs of R lumbosacral L5-S2 May need a series of injections for optimal pain relief. Risks, benefits of procedure discussed and patient verbalized understanding. Admits to Coumadin use and denies medical history of diabetes. Protocol for discontinuation/ continuation of medications cody procedure discussed. Message for Sandra POWERS to hold Coumadin dose today until procedure completed on 01/07/22. All questions answered. I have spent greater than 30 minutes on patient care today. Dr Mann was available by phone for the evaluation of this patient. The time was used to review the medical records including relevant urine studies and Prescription hi story (MAPs), review of the available imaging, evaluation and examination of the patient, coordination of care with the medical staff and if applicable referring physicians, as well as creation of the medical record - Pain Location Right Buttock Non-Pharmacological Interventions: Inactivity Pharmacological Interventions: PRN Medication PQRS Narrative: Smoking Status Never smoker Do You Want the Pneumonia Vaccine Up to Date Vaccine AT THIS TIME? Blood Pressure [Right Arm] 98/61 Blood Pressure 158/73 Pain Intensity [Right Buttock] 0 Pain Intensity 10 Pain Scale Used Numeric (1 - 10) Scale Used Numeric (1 - 10) Home Medications: Ambulatory Orders Levothyroxine Sodium [Synthroid] 112 mcg PO DAILY 08/20/14 Warfarin [Coumadin] 2.5 mg PO TUWETHSA 08/20/14 Warfarin [Coumadin] 5 mg PO MOFR 08/20/14 Metoprolol Tartrate [Lopressor] 100 mg PO DAILY 01/05/22 Valsartan/Hydrochlorothiazide [Valsartan-Hctz 80-12.5 mg Tab] 1 tab PO DAILY 01/05/22 Controlled Substance Measures - Controlled Substance Measures Is patient prescribed a controlled substance at discharge?: No
[2022-01-06] MEDS ORDERED: WARFARIN 5 MG TAB PO SCH (16:36)
[2022-01-06] MEDS ORDERED: WARFARIN 0.5 MG TAB PO ONE (18:00)
--- NOTE | 2022-01-06 21:39 | P.CNNES ---
History of Present Illness Consult date: 01/06/22 Requesting physician: Lisa Laguerre Reason for Consult: Weakness History of Present Illness: Patient is a 89 year old female, who came to the hospital on 01/04/2022 at 7:32 PM for a fall that happened 2 or 3 weeks ago. Patient states that she was trying to do something, had no business with, caught off guard, when she turned around, lost balance, fell from the last 2 steps, landed on the buttocks on the cement floor of her garage. She did not hit her head. Patient did not lose consciousness. Since then patient has been having pain in the right buttock, which is not radiating down the leg, only slightly below the buttock. Denies any back pain, neck pain or any symptoms in the other 3 extremities. The pain has been steadily getting worse, couldn't walk, couldn't handle the pain, therefore came to the hospital. She denies any weakness anywhere in the body. She denies any slurred speech, double vision, focal numbness tingling weakness or any strokelike symptoms. 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 She denies any diplopia, denies slurred speech. She says that she always had I droop. Denies dysphagia, dyspnea. Denies headaches. Patient says that she had fell one more time about 1-1/2 years ago, which also happened the same way when she lost balance. She received cortisone shot, and the symptoms went away. Patient denies any weakness in her arms or legs. Patient says that she lives by herself. Patient has no children. Patient denies diabetes or tobacco use. Patient underwent computed tomography scan of the head, which revealed no acute process. I personally reviewed computed tomography scan and agree with the findings. Generalized atrophy. CT of the lumbar spine revealed multilevel spondylotic changes. No fracture. Patient states that prior to the fall she did not use any assistive device. However since the fall, she has been tending to inclined towards using walker the cause of the pain. Patient's vitals on arrival blood pressure 178/83 pulse rate 77 temperature 98.0. Patient underwent blood testing in which WBC 9.5 hematocrit 36.7. Elevated MCV 102.2. Patient is on Coumadin, INR 3.6. Sodium 134 potassium 4.5, BUN 39, creatinine 1.18, glucose 132. Patient's home medications includes Coumadin, levothyroxine, metoprolol, valsartan/HCTZ. Review of Systems As mentioned above in HPI. All other review of systems reviewed, unremarkable. No chest pain, abdominal pain nausea vomiting diarrhea. No fever or chills. Past Medical History Past Medical History: Deep Vein Thrombosis (DVT), Hypertension, Thyroid Disorder History of Any Multi-Drug Resistant Organisms: None Reported Past Surgical History: Appendectomy Past Psychological History: No Psychological Hx Reported Smoking Status: Never smoker Past Alcohol Use History: None Reported Past Drug Use History: None Reported Medications and Allergies Home Medications Medication Instructions Recorded Confirmed Type Levothyroxine Sodium [Synthroid] 112 mcg PO DAILY 08/20/14 01/05/22 History Warfarin [Coumadin] 2.5 mg PO TUWETHSA 08/20/14 01/05/22 History Warfarin [Coumadin] 5 mg PO MOFR 08/20/14 01/05/22 History Metoprolol Tartrate [Lopressor] 100 mg PO DAILY 01/05/22 01/05/22 History Valsartan/Hydrochlorothiazide 1 tab PO DAILY 01/05/22 01/05/22 History [Valsartan-Hctz 80-12.5 mg Tab] Allergies Allergy/AdvReac Type Severity Reaction Status Date / Time No Known Allergies Allergy Verified 01/05/22 12:06 Physical Examination - Vital Signs Vital Signs: Vital Signs Temp Pulse Resp BP Pulse Ox 01/06/22 04:34 98.5 F 82 16 152/67 92 L 01/05/22 20:03 98.7 F 80 15 134/62 92 L 01/05/22 20:00 15 01/05/22 12:56 98.2 F 74 16 102/59 94 L Intake and Output 01/05/22 01/06/22 01/06/22 22:59 06:59 14:59 Intake Total 240 Output Total 400 Balance -160 Intake: Oral 240 Output: Urine 400 Other: # Voids 1 1 Patient is an elderly female, in no acute distress. Patient is alert awake oriented to time place and person. Patient knows it is December, and the deepest and the year is 2021. Speech and language functions are normal. Attention, concentration and fund of knowledge is adequate. On cranial examination, pupils are equal, round and reacting to light, visual rowe reveals questionable deficit on the right side, but was very inconsiste nt. She has significant bilateral ptosis. Her extraocular muscles are intact with no nystagmus. Face is symmetric, tongue protrudes to the midline. Palatal elevation and sensation normal, hearing is mild to moderately decreased and shoulder shrug normal, facial sensation normal. Shoulder shrug normal. On muscle strength testing, there is no pronator drift and the strength is normal in arms and legs distally and proximally. Deep tendon reflexes are symmetric, 1 at the biceps, 0 brachioradialis, trace knees, 1 ankles and plantars downgoing bilaterally. Sensory to touch is equal with no neglect. Cerebellar function showed no ataxia for kmcwyo-th-kqch testing. No dysdiadochokinesia. Tone and bulk of muscles normal. Gait deferred. On general examination, there is no carotid bruit or murmur, S1-S2 audible. Abdomen is soft nontender. No organomegaly, bowel sounds present. Chest is clear. Peripheral pulses are present. No edema. Results - Laboratory Findings CBC and BMP: 01/06/22 05:41 01/06/22 05:41 Abnormal Lab Findings: Abnormal Labs 01/05/22 01/05/22 01/05/22 00:10 02:37 02:37 RBC 3.59 L Hgb Hct MCV 102.2 H MCH Lymphocytes # PT INR Sodium 134 L BUN 39 H Creatinine 1.18 H Glucose 132 H Urine Blood Moderate H Urine Mucus Rare H 01/05/22 01/05/22 01/06/22 19:10 21:44 05:41 RBC 3.37 L Hgb 11.1 L Hct 33.9 L MCV 100.6 H MCH 32.9 H Lymphocytes # 0.73 L PT 35.4 H 34.1 H INR 3.6 H 3.4 H Sodium BUN Creatinine Glucose Urine Blood Urine Mucus 01/06/22 05:41 RBC Hgb Hct MCV MCH Lymphocytes # PT 31.6 H INR 3.2 H Sodium BUN Creatinine Glucose Urine Blood Urine Mucus Assessment and Plan Assessment: * Status post accidental fall, likely due to losing balance while turning on the steps. Patient does not have any gait disorder otherwise, did not use any assistive device prior to the fall. She has been using walker since a fall because of pain. * Bilateral ptosis, unclear cause. * Hypertension * Macrocytosis, rule out B12/folate deficiency. Plan: * Patient examination is relatively normal. No evidence of muscle weakness noted. Her strength is fairly normal in arms and legs. * Patient has bilateral ptosis, therefore we will check acetylcholine receptor antibodies. * We will check B12, folate, MMA. * Orthopedic surgery has seen the patient. Note reviewed. Pain management also on board. * Patient recommended to follow up with soil field technician regarding visual field testing and bilateral ptosis. * No other neurological workup indicated at this time.
[2022-01-07] MEDS: LEVOTHYROXINE 112 MCG TAB PO SCH (04:22)
[2022-01-07 08:19] LABS: INR 2.3 (<1.2); Prothrombin Time 23.3 sec (9.0-12.0)
[2022-01-07] MEDS: METOPROLOL TARTRATE 50 MG TAB PO SCH (08:28)
[2022-01-07] MEDS: hydroCHLOROthiazide 12.5 MG CAP PO SCH (08:28)
[2022-01-07] MEDS: VALSARTAN 80 MG TAB PO SCH (08:28)
--- NOTE | 2022-01-07 10:06 | P.DS ---
Providers Date of admission: 01/05/22 00:12 Expected date of discharge: 01/07/22 Attending physician: Conrado Martinez Consults: 01/05/22 19:41 Consult Physician Routine Consulting Provider: Willy Hackett Consult Reason/Comments: back pain Do you want consulting provider notified?: Yes 01/05/22 20:59 Consult Physician Routine Consulting Provider: Tatum Anne Consult Reason/Comments: weakness Do you want consulting provider notified?: Yes 01/06/22 08:04 Consult Physician Routine Consulting Provider: Sadia Mann Consult Reason/Comments: lumbar pain, eval for steroid injection Do you want consulting provider notified?: Yes Primary care physician: [facility] Course: HISTORY OF PRESENT ILLNESS This is an 89-year-old female patient of Dr. Garcia Hastings with past medical history of DVT, hypothyroidism, and hypertension, presented to [facility] due to back pain following a fall with pain radiating down her leg. CAT scan of the lumbar spine revealed multilevel spondylotic changes of the lumbar spine. No fracture seen. INR 3.6 and Coumadin has been on hold. She continues to complain of pain in the lumbar area with radiation down the leg. Consult added for pain management. There is a consult in place already with Dr. Anne for weakness and also Dr. Hackett for back pain. Consult with PT and OT added. INR today is 3.2. Patient may be candidate for trigger point injection by pain management. Patient is adamant that she does not want rehab and does not want home care. Anticipate discharge home tomorrow. 01/07: Patient has been seen by neurology with recommendations for acetylcholine receptor antibody test regarding bilateral proptosis and follow-up with ophthalmology outpatient. Patient is been seen by orthopedic spine and plan for follow-up in the outpatient setting as needed. Patient has been seen by pain management with plan for trigger point injection L5 to S2. Coumadin is on hold for this procedure and this morning's INR is 2.3. Patient remains afebrile, heart rate 82, blood pressure 166/71, pulse ox 94% on room air. Patient will be discharged home later today after procedure if no complications. DISCHARGE DIAGNOSES 1. Intractable back pain secondary to fall and severe degenerative joint disease. 2. Lower leg weakness and gait dysfunction. 3. History of DVT. 4. Hypercoagulopathy. 5. Hypertension. DISCHARGE PLAN Home Greater than 35 minutes was utilized and coordinating patient's discharge. Impression and plan of care have been directed as dictated by the signing physician. Frances Garcia nurse practitioner acting as scribe for signing physician. Patient Condition at Discharge: Good Plan - Discharge Summary New Discharge Prescriptions: No Action Warfarin [Coumadin] 5 mg PO MOFR Warfarin [Coumadin] 2.5 mg PO TUWETHSA Levothyroxine Sodium [Synthroid] 112 mcg PO DAILY Metoprolol Tartrate [Lopressor] 100 mg PO DAILY Valsartan/Hydrochlorothiazide [Valsartan-Hctz 80-12.5 mg Tab] 1 tab PO DAILY Discharge Medication List Levothyroxine Sodium [Synthroid] 112 mcg PO DAILY 08/20/14 [History] Warfarin [Coumadin] 2.5 mg PO TUWETHSA 08/20/14 [History] Warfarin [Coumadin] 5 mg PO MOFR 08/20/14 [History] Metoprolol Tartrate [Lopressor] 100 mg PO DAILY 01/05/22 [History] Valsartan/Hydrochlorothiazide [Valsartan-Hctz 80-12.5 mg Tab] 1 tab PO DAILY 01/05/22 [History] Follow up Appointment(s)/Referral(s): Pepe Yoo PAC [PHYSICIAN [employer]ELOPER] - As Needed [facility], [NON-STAFF] - 1 Week Garcia Hastings MD [REFERRING] - 1 Week Patient Instructions/Handouts: Acute Low Back Pain (ED) Discharge Disposition: HOME WITH HOME HEALTH SERVICES
[2022-01-07 11:07] VITALS: BP 161/80; PULSE 68; RESP 20; TEMP 97
[2022-01-07] MEDS ORDERED: LACTATED RINGERS 1,000 ML IV ONE (11:14)
[2022-01-07] MEDS ORDERED: methylPREDNISolone ACETATE 40 MG/ML 1 ML VIAL ONE (11:41)
[2022-01-07] MEDS ORDERED: ROPIVACAINE 5MG/ML 20ML VIAL ONE (11:41)
--- NOTE | 2022-01-07 11:56 | P.PCN ---
Date of Procedure: 01/07/22 Procedure(s) Performed: Procedure= trigger point injection lumbar sacral area, 3 trigger point injected on the right side, to trigger point injected on the left side lumbosacral Preoperative diagnosis= 1-myofascial pain syndrome lumbosacral area 2-lumbar degenerative disc disease 3-lumbar facet arthropathy Postoperative diagnosis=Same as preop Diagnosis . Complication = none Condition= stable Anesthesia=none Indication for the procedure= patient complaining of low back pain , examination was positive for multiple trigger point identified in the lumbosacral area bilaterally and patient diagnosed with myofascial pain syndrome, for this reason she was good candidate for trigger point injection. Description of the procedure= procedure risk and benefits discussed with the patient, including but not limited, risk of infection and bleeding, and ALLERGIC reaction to the medication and not complete pain relief and patient agreed with the preceding patient taken to the operating room, placed in prone position or standard monitors applied to the patient then after induction of anesthesia back prepped with chlorhexidine 3 times , then under sterile technique each of the trigger point injected with a mixture of ropivacaine 0.5% mixed with 40 mg of Depo-Medrol ,then 2 mL the mixture injected at each trigger point after negative aspiration, a total of 3 trigger point identified in the right side lumbosacral area, and to trigger point injected of the left side lumbosacral area, patient tolerated the procedure well without any complications. note= pateints currently on Coumadin
[2022-01-07] MEDS ORDERED: FOLIC ACID 1 MG TAB PO SCH (12:00)
[2022-01-07] MEDS ORDERED: WARFARIN 2.5 MG TAB PO SCH (16:36)
[2022-01-07] MEDS ORDERED: WARFARIN 2.5 MG TAB PO ONE (18:00)
== END 2022-01-07 16:05 | disposition home health service (06) | DRG 552 ==
LOC: EC 19:32 → 5NMEDONC 01-05 00:12
PROVIDERS: ADMIT Internal Medicine Geriatric Medicine; ATTEND Internal Medicine Geriatric Medicine
PROC: 3E0R33Z Introduction of Anti-inflammatory into Spinal Canal, Percutaneous Approach (ICD-10-PCS; 2022-01-07)
PROC: 3E0R3BZ Introduction of Anesthetic Agent into Spinal Canal, Percutaneous Approach (ICD-10-PCS; principal; 2022-01-07 15:00)
DX: M51.17 Intervertebral disc disorders with radiculopathy, lumbosacral region (principal); D68.59 Other primary thrombophilia; M47.16 Other spondylosis with myelopathy, lumbar region; M51.06 Intervertebral disc disorders with myelopathy, lumbar region; E53.8 Deficiency of other specified B group vitamins; M43.17 Spondylolisthesis, lumbosacral region; M46.97 Unspecified inflammatory spondylopathy, lumbosacral region; M48.061 Spinal stenosis, lumbar region without neurogenic claudication; D75.89 Other specified diseases of blood and blood-forming organs; E03.9 Hypothyroidism, unspecified; H05.20 Unspecified exophthalmos; M47.26 Other spondylosis with radiculopathy, lumbar region; Z86.718 Personal history of other venous thrombosis and embolism; R53.1 Weakness; R26.2 Difficulty in walking, not elsewhere classified; I10 Essential (primary) hypertension; W19.XXXA Unspecified fall, initial encounter; Z79.01 Long term (current) use of anticoagulants; Z79.890 Hormone replacement therapy; Z79.899 Other long term (current) drug therapy; Z91.81 History of falling
CPT/HCPCS: 20553; 36415; 70450; 72100; 72131; 72170; 80048; 81001; 82607; 82746; 83036; 83519; 83921; 85025; 85610; 96372; 99285

== ENCOUNTER 2022-06-25 08:18 | Inpatient (IN) | payer MEDICARE ==
[2022-06-25] MEDS ORDERED: SODIUM CHLORIDE 0.9% 1,000 ML IV ONE (08:35)
--- NOTE | 2022-06-25 09:13 | ED ---
General Adult HPI - General Chief complaint: Fall Stated complaint: fall Time Seen by Provider: 06/25/22 08:29 Source: patient, EMS, RN notes reviewed, old records reviewed Mode of arrival: EMS Limitations: no limitations - History of Present Illness Initial comments: Patient is an 89-year-old female who presents from her nursing facility after being found down at her facility covered in urine. She is found in the bathroom covered in urine. Unknown if she fell. Patient denies falling. Unknown how long she was therefore. Was sent here for further evaluation. She denies any pain or injury other than which she states is chronic right knee pain but has good range of motion. She is at baseline alert and oriented 2. She is currently under baseline. Denies any headaches. Denies hitting her head. Denies loss consciousness. Denies any chest pain, abdominal pain, nausea, vomiting. States she is on Coumadin. Has no other acute complaints at this time. Presents for further evaluation at this time. - Related Data Home Medications Medication Instructions Recorded Confirmed Levothyroxine Sodium [Synthroid] 112 mcg PO DAILY 08/20/14 06/25/22 Metoprolol Succinate [Metoprolol 25 mg PO DAILY 06/25/22 06/25/22 Succinate ER] QUEtiapine [SEROquel] 12.5 mg PO HS 06/25/22 06/25/22 Allergies Allergy/AdvReac Type Severity Reaction Status Date / Time No Known Allergies Allergy Verified 06/25/22 11:44 Review of Systems ROS Statement: Those systems with pertinent positive or pertinent negative responses have been documented in the HPI. Review of Systems: CONST: Denies fever EYES: Denies blurry vision ENT: Denies nasal congestion C/V: Denies Chest pain RESP: Denies shortness of breath GI: Denies abdominal pain : Denies dysuria SKIN: Denies rash. MSK: Endorses chronic right knee pain NEURO: Denies headache ROS Other: All systems not noted in ROS Statement are negative. Past Medical History Past Medical History: Deep Vein Thrombosis (DVT), Hypertension, Thyroid Disorder History of Any Multi-Drug Resistant Organisms: None Reported Past Surgical History: Appendectomy Past Psychological History: No Psychological Hx Reported Smoking Status: Never smoker Past Alcohol Use History: None Reported Past Drug Use History: None Reported General Exam - General Exam Comments Initial Comments: General: Appears in no acute distress. HEAD: Normal with no signs of head trauma. EYES: PERRLA, EOMI, conjunctiva normal, no discharge. Pupils are 3 mm and equal bilaterally. ENT: Hearing grossly intact, normal oropharynx. RESPIRATORY: Clear breath sounds bilaterally. No wheezes, rales, or rhonchi. C/V: Regular rate and rhythm. S1 and S2 auscultated, peripheral pulses 2+ and intact throughout ABD: Abd is soft, nontender, nondistended EXT: Right knee pain on palpation. No obvious deformities. Normal range of motion otherwise. SKIN: No rashes or lesions observed on exposed skin. NEURO: Alert and oriented 2-3 which is her baseline. No focal deficits. Limitations: no limitations Course Vital Signs 06/25/22 08:21 Temperature 97.7 F Pulse Rate 65 Respiratory 18 Rate Blood Pressure 158/80 O2 Sat by Pulse 98 Oximetry Medical Decision Making - Medical Decision Making Based on the patient's presentation and physical exam, she presents with altered mental status, as well as concern for possible fall. It was discovered that she was recently discharged from another hospital for agitation, worsening dementia. However we will obtain a altered mental status workup at this time while we attempt to obtain records. Vital signs within acceptable limits. Patient was in agreement this plan. EKG shows no signs of ischemia. Chest x-ray as interpreted by myself reveals no evidence of acute cardio pulmonary process, infiltrate. Patient's right knee x-ray as interpreted by myself reveals no evidence acute injury at this time. Does appear to have some arthritis. Patient's CT brain, cervical spine is interpreted by myself reveals no evidence of intracranial process such as hemorrhage. No mass effect or midline shift. Cervical spine shows no acute medical injury. Laboratory studies are remarkable for a slightly elevated troponin of 0.036. She is slightly elevated creatinine with a level of 1.12. Remainder of the labs are unremarkable. She continues to deny any chest pain. I discussed labs with the patient as well as friends who are her caretakers. They accessed understanding. She will be admitted to the hospital for neurology to evaluate the patient as well as cardiology to the slightly elevated troponin. They were in agreement this plan. Cardiology, psych, neuro were consulted. I spoke with the admitting physician Dr. Laguerre who accepted the patient. Patient was admitted in stable condition. - Lab Data Result diagrams: 06/25/22 08:36 06/25/22 08:36 Lab Results 06/25/22 06/25/22 06/25/22 Range/Units 08:36 08:36 08:36 WBC 5.7 (3.8-10.6) k/uL RBC 3.85 (3.80-5.40) m/uL Hgb 12.8 (11.4-16.0) gm/dL Hct 37.5 (34.0-46.0) % MCV 97.4 (80.0-100.0) fL MCH 33.3 (25.0-35.0) pg MCHC 34.2 (31.0-37.0) g/dL RDW 13.8 (11.5-15.5) % Plt Count 156 (150-450) k/uL MPV 8.3 Neutrophils % 83 % Lymphocytes % 10 % Monocytes % 4 % Eosinophils % 1 % Basophils % 1 % Neutrophils # 4.7 (1.3-7.7) k/uL Lymphocytes # 0.6 L (1.0-4.8) k/uL Monocytes # 0.3 (0-1.0) k/uL Eosinophils # 0.1 (0-0.7) k/uL Basophils # 0.0 (0-0.2) k/uL PT 10.7 (9.0-12.0) sec INR 1.0 (<1.2) APTT 22.3 (22.0-30.0) sec Sodium (137-145) mmol/L Potassium (3.5-5.1) mmol/L Chloride (98-107) mmol/L Carbon Dioxide (22-30) mmol/L Anion Gap mmol/L BUN (7-17) mg/dL Creatinine (0.52-1.04) mg/dL Est GFR (CKD-EPI)AfAm (>60 ml/min/1.73 sqM) Est GFR (CKD-EPI)NonAf (>60 ml/min/1.73 sqM) Glucose (74-99) mg/dL Calcium (8.4-10.2) mg/dL Total Bilirubin (0.2-1.3) mg/dL AST (14-36) U/L ALT (4-34) U/L Alkaline Phosphatase (38-126) U/L Ammonia (<30) umol/L Troponin I (0.000-0.034) ng/mL Total Protein (6.3-8.2) g/dL Albumin (3.5-5.0) g/dL Urine Color Light Yellow Urine Appearance Clear (Clear) Urine pH 5.5 (5.0-8.0) Ur Specific [place] 1.006 (1.001-1.035) Urine Protein Negative (Negative) Urine Glucose (UA) Negative (Negative) Urine Ketones Negative (Negative) Urine Blood Small H (Negative) Urine Nitrite Negative (Negative) Urine Bilirubin Negative (Negative) Urine Urobilinogen <2.0 (<2.0) mg/dL Ur Leukocyte Esterase Negative (Negative) Urine RBC 1 (0-5) /hpf Urine WBC <1 (0-5) /hpf Urine Bacteria Rare H (None) /hpf Urine Opiates Screen Not Detected (NotDetected) Ur Oxycodone Screen Not Detected (NotDetected) Urine Methadone Screen Not Detected (NotDetected) Ur Propoxyphene Screen Not Detected (NotDetected) Ur Barbiturates Screen Not Detected (NotDetected) U Tricyclic Antidepress Not Detected (NotDetected) Ur Phencyclidine Scrn Not Detected (NotDetected) Ur Amphetamines Screen Not Detected (NotDetected) U Methamphetamines Scrn Not Detected (NotDetected) U Benzodiazepines Scrn Not Detected (NotDetected) Urine Cocaine Screen Not Detected (NotDetected) U Marijuana (THC) Screen Not Detected (NotDetected) 06/25/22 06/25/22 06/25/22 Range/Units 08:36 08:36 08:36 WBC (3.8-10.6) k/uL RBC (3.80-5.40) m/uL Hgb (11.4-16.0) gm/dL Hct (34.0-46.0) % MCV (80.0-100.0) fL MCH (25.0-35.0) pg MCHC (31.0-37.0) g/dL RDW (11.5-15.5) % Plt Count (150-450) k/uL MPV Neutrophils % % Lymphocytes % % Monocytes % % Eosinophils % % Basophils % % Neutrophils # (1.3-7.7) k/uL Lymphocytes # (1.0-4.8) k/uL Monocytes # (0-1.0) k/uL Eosinophils # (0-0.7) k/uL Basophils # (0-0.2) k/uL PT (9.0-12.0) sec INR (<1.2) APTT (22.0-30.0) sec Sodium 138 (137-145) mmol/L Potassium 4.5 (3.5-5.1) mmol/L Chloride 107 (98-107) mmol/L Carbon Dioxide 24 (22-30) mmol/L Anion Gap 7 mmol/L BUN 30 H (7-17) mg/dL Creatinine 1.12 H (0.52-1.04) mg/dL Est GFR (CKD-EPI)AfAm 50 (>60 ml/min/1.73 sqM) Est GFR (CKD-EPI)NonAf 44 (>60 ml/min/1.73 sqM) Glucose 107 H (74-99) mg/dL Calcium 8.8 (8.4-10.2) mg/dL Total Bilirubin 0.6 (0.2-1.3) mg/dL AST 40 H (14-36) U/L ALT 16 (4-34) U/L Alkaline Phosphatase 154 H (38-126) U/L Ammonia <9 (<30) umol/L Troponin I 0.036 H* (0.000-0.034) ng/mL Total Protein 6.3 (6.3-8.2) g/dL Albumin 3.8 (3.5-5.0) g/dL Urine Color Urine Appearance (Clear) Urine pH (5.0-8.0) Ur Specific [place] (1.001-1.035) Urine Protein (Negative) Urine Glucose (UA) (Negative) Urine Ketones (Negative) Urine Blood (Negative) Urine Nitrite (Negative) Urine Bilirubin (Negative) Urine Urobilinogen (<2.0) mg/dL Ur Leukocyte Esterase (Negative) Urine RBC (0-5) /hpf Urine WBC (0-5) /hpf Urine Bacteria (None) /hpf Urine Opiates Screen (NotDetected) Ur Oxycodone Screen (NotDetected) Urine Methadone Screen (NotDetected) Ur Propoxyphene Screen (NotDetected) Ur Barbiturates Screen (NotDetected) U Tricyclic Antidepress (NotDetected) Ur Phencyclidine Scrn (NotDetected) Ur Amphetamines Screen (NotDetected) U Methamphetamines Scrn (NotDetected) U Benzodiazepines Scrn (NotDetected) Urine Cocaine Screen (NotDetected) U Marijuana (THC) Screen (NotDetected) - EKG Data -: EKG Interpreted by Me EKG Comments: 12-lead Electrocardiogram Interpretation Note EKG was reviewed and interpreted by myself. 12-lead ECG performed at 0841 is interpreted by me as revealing normal sinus rhythm at a rate of 62 beats per minute. Ulysses is normal. FL interval is 159 ms, QRS duration is 142 ms, QTc is 442 ms.. There is a right bundle branch block. Isolated T-wave inversion in V3. R wave progression across the precordium was satisfactory. By my interpretation this EKG is non-diagnostic for acute ischemia. No prior EKG for comparison. Disposition Clinical Impression: Fall, Agitation, Dementia Disposition: ADMITTED IP TO THIS [facility] Condition: Stable Time of Disposition: 11:30
--- NOTE | 2022-06-25 09:28 | XR ---
EXAMINATION TYPE: XR knee complete RT DATE OF EXAM: 06/25/2022 COMPARISON: NONE HISTORY: Pain TECHNIQUE: Three views are submitted. FINDINGS: Diffuse osteopenia. Well-corticated density adjacent to the medial margin of the joint space could be on the basis of prior trauma. No erosive changes. Mild narrowing of the medial compartment of the kn ee joint and patellofemoral joint. Vascular calcifications are seen. IMPRESSION: 1. Diffuse osteopenia with [id number] osteoarthritis. Bony density appears corticated adjacent to the medial joint space could be associated with prior trauma or calcified extruded meniscus. Consi babar MRI.
--- NOTE | 2022-06-25 09:30 | XR ---
EXAMINATION TYPE: XR chest 2V DATE OF EXAM: 06/25/2022 COMPARISON: NONE TECHNIQUE: PA and lateral views submitted. HISTORY: Altered mental status FINDINGS: The lungs are clear and there is no pneumothorax, pleural effusion, or focal pneumonia. Hyperinflat ion suggests COPD. Bilateral subsegmental consolidation nor overt failure. Calcification along the le ft humeral associated calcific tendinosis. Arthropathy of the shoulders. No overt failure or pneumoth orax. Atherosclerotic change aorta. Degenerative changes of the spine. IMPRESSION: 1. No acute process. Correlate for COPD.
--- NOTE | 2022-06-25 09:57 | CT ---
EXAMINATION TYPE: CT brain cspine wo con DATE OF EXAM: 06/25/2022 COMPARISON: CT brain January 05, 2022 HISTORY: Altered mental status and neck pain. CT DLP: 1236.1 mGycm. Automated Exposure Control for Dose Reduction was Utilized. TECHNIQUE: CT scan of the head and cervical spine are performed without contrast. FINDINGS: There is no acute intracranial hemorrhage or midline shift identified. Moderate ventricul ar and sulcal prominence is redemonstrated. Moderate low-attenuation in the deep and periventricular white matter is redemonstrated. Bony projection left frontal calvarial axial image 21 could reflect o steoma is redemonstrated. The globes are intact and the visualized sinuses are clear. The calvarium is intact. Cervical spine is visualized in its entirety from C1 through upper thoracic levels and demonstrates l evoconvex scoliotic curvature centered upper thoracic spine without evidence of acute fracture or dis location. Osseous structures are demineralized. Prevertebral soft tissue appears within normal limit s. The C1-C2 articulation is within normal limits on the coronal images. Vertebral body heights are maintained. Mild to moderate multilevel disc space narrowing C4-C5 through C6-C7 levels is present. Vertebral body heights are preserved. Lung apices show mild to moderate parenchymal scarring and calc ification. Axial images show uncovertebral facet degenerative changes contributing to multilevel bila teral neural foraminal narrowing. IMPRESSION: 1. There is no acute fracture or dislocation evident in the cervical spine. 2. No acute intracranial hemorrhage or midline shift is seen. Moderate diffuse cerebral atrophy and c hronic small vessel ischemic change is redemonstrated.
[2022-06-25 09:58] LABS: Basophils % (A) 1 %; Eosinophils # (A) 0.1 k/uL (0-0.7); Eosinophils % (A) 1 %; HCT 37.5 % (34.0-46.0); HGB 12.8 gm/dL (11.4-16.0); Lymphocytes # (A) 0.6 k/uL (1.0-4.8); Lymphocytes % (A) 10 %; MCH 33.3 pg (25.0-35.0); MCHC 34.2 g/dL (31.0-37.0); MCV 97.4 fL (80.0-100.0); Mean Platelet Volume 8.3; Monocytes # (A) 0.3 k/uL (0-1.0); Monocytes % (A) 4 %; Neutrophils # (A) 4.7 k/uL (1.3-7.7); Neutrophils % (A) 83 %; Platelet Count 156 k/uL (150-450); RBC 3.85 m/uL (3.80-5.40); RDW 13.8 % (11.5-15.5); WBC 5.7 k/uL (3.8-10.6)
[2022-06-25 10:07] LABS: Partial Thromboplastin Time 22.3 sec (22.0-30.0); Prothrombin Time 10.7 sec (9.0-12.0)
[2022-06-25 10:09] LABS: Albumin 3.8 g/dL (3.5-5.0); Calcium 8.8 mg/dL (8.4-10.2); Potassium 4.5 mmol/L (3.5-5.1); Total Bilirubin 0.6 mg/dL (0.2-1.3); Total Protein 6.3 g/dL (6.3-8.2)
[2022-06-25 11:06] LABS: Amphetamine Screen,Urine Not Detected (NotDetected); Appearance,Urine Clear (Clear); Bacteria,Urine Rare /hpf; Barbiturate Screen,Urine Not Detected (NotDetected); Benzodiazepines Screen,Urine Not Detected (NotDetected); Bilirubin,Urine Negative (Negative); Blood,Urine Small (Negative); Cocaine Screen,Urine Not Detected (NotDetected); Color,Urine Light Yellow; Glucose,Urine (UA) Negative (Negative); Ketones,Urine Negative (Negative); Leukocyte Esterase,Urine Negative (Negative); Methadone Screen, Urine Not Detected (NotDetected); Nitrite,Urine Negative (Negative); Opiate Screen,Urine Not Detected (NotDetected); Oxycodone Screen, Urine Not Detected (NotDetected); PH, Urine 5.5 (5.0-8.0); Phencyclidine Screen,Urine Not Detected (NotDetected); Protein,Urine Negative (Negative); RBC,Urine 1 /hpf (0-5); Specific Gravity,Urine 1.006 (1.001-1.035); Tricyclic Antidepressant,Urine Not Detected (NotDetected); Urn Cannabinoid Scrn Not Detected (NotDetected); Urobilinogen,Urine <2.0 mg/dL (<2.0); WBC,Urine <1 /hpf (0-5)
[2022-06-25] MEDS ORDERED: ASPIRIN 81 MG PO STA (11:25)
[2022-06-25] MEDS ORDERED: NALOXONE 0.4 MG/ML 1 ML VIAL IV PRN (11:49)
--- NOTE | 2022-06-25 17:10 | P.CNNES ---
History of Present Illness Consult date: 06/25/22 Requesting physician: Andrew Chery Reason for Consult: agitation, dementia History of Present Illness: Patient is a 89-year-old female with history of dementia was brought to the hospital for altered mental status. Patient states that she decided to take a walk but she took not the right one. She got lost and was brought here. Patient lives in [facility]. She states that the woman who owned the house got on the phone and called EMS. As per EMS flow sheet, when they arrived, patient was in care of visiting staff. Per staff, patient has had 2 falls this morning and has been having increased altered mental status. Patient is alert and oriented 2. Patient was sitting on the floor by her walker. Patient was unable to recall why she fell. Patient was very unsteady on her feet with over gait, required 2 person transfer. Patient denied any head, neck or back pain. Per staff, patient has been having changes in mental status for last 2 weeks. Patient is also having what appears to be hallucinations, seeing things that are not there and not recognizing common objects. Patient has incontinence to bladder. Patient had a bruise on the forehead which appears to be old. Patient continued to have hallucinations, with seeing people and random conversation while being transported to the hospital. Vital signs at the scene with blood pressure 141/96, pulse rate 74 respiration 18, saturation 96% and blood sugar 150. Outside records from [facility] revealed patient was brought to the hospital 06/22/2022 at 5:59 PM with altered mental status. She was accompanied by friends who help with her care as needed. She was found wandering outside earlier this morning at her residence which is [facility]. Friends mentioned that patient's mental status does very from day to day but that day she was experiencing auditory and visual hallucinations. No known fever. Patient's blood pressure was 147/59. Discharge diagnosis was change in mental status, recurrent DVT, essential hypertension, mixed hyperlipidemia. Moderate dementia with visual hallucinations and auditory hallucinations. patient had negative kevin virus PCR on 06/22/2022. Lipase 73 UA negative. B lood alcohol level negative, urine drug screen negative, UA did show positive nitrite and negative leukocyte esterase. Chem-7 normal, CBC normal cholesterol 213, LDL 119, HDL 86 and triglycerides 42 on 06/23/2022. Hemoglobin A1c 5.8 06/23/2022. Hepatic panel normal. Chest x-ray showed mild cardiomegaly with probable chronic mild interstitial changes. No acute cardiac or renal disease. CT head revealed marked generalized atrophy. Mild chronic ischemic white matter demyelination. No acute bleed or mass effect. Carotid Doppler 06/23/2022 showed no evidence of hemodynamically significant stenosis of bilateral ICA. Mild to moderate intraluminal plaque was visualized in bilateral carotid artery bulbs. The left and right vertebral arteries are patent with antegrade flow. 2-D echo from 06/23/2022 revealed left ventricular size and systolic function is normal. Mild concentric LVH. Mild to moderate mitral and mild tricuspid regurgitation. No pericardial effusion. Bubble study does not demonstrate any shunt. Left atrial size is normal. Patient's blood test shows normal CBC, PT/PTT, normal electrolytes. BUN 30 creatinine 1.12. AST is mildly elevated 40, but normal ALT 16. Troponins are mildly elevated. UA is negative, urine drug screen negative. Patient's last hemoglobin A1c 6.1 on 01/06/2022. B12 was 764 with normal methylmalonic acid 0.06 and folate 10.4. TSH normal. CT head showed no acute intracranial hemorrhage or midline shift. Moderate diffuse cerebral atrophy and chronic small vessel ischemic change. I personally reviewed CT head, agree with the findings. CT of the cervical spine showed no acute fracture or dislocation evident in the cervical spine. EKG shows sinus rhythm, chest x-ray showed no acute process, correlate for COPD. X-ray of the right knee showed diffuse osteopenia with mild to moderate osteoarthritis. Bony density appears soumya icated adjacent to the medial joint space could be associated with prior trauma or calcified extruded meniscus. Consider MRI. Patient's home medication includes levothyroxine, Seroquel 12.5 mg at bedtime and metoprolol. Patient states that she lives by herself. She has no children. She denies any tobacco. She drinks alcohol "now and then". Review of Systems Constitutional: Denies chills, Denies fever Eyes: denies blurred vision, denies pain Ears: deny: decreased hearing, earache Ears, nose, mouth and throat: Denies headache, Denies sore throat Cardiovascular: Denies chest pain, Denies shortness of breath Respiratory: Denies cough Gastrointestinal: Denies abdominal pain, Denies diarrhea, Denies nausea, Denies vomiting Musculoskeletal: Denies myalgias Neurological: Reports as per HPI Psychiatric: Reports difficulty concentrating, Reports memory loss Past Medical History Past Medical History: Deep Vein Thrombosis (DVT), Hypertension, Thyroid Disorder History of Any Multi-Drug Resistant Organisms: None Reported Past Surgical History: Appendectomy Past Psychological History: No Psychological Hx Reported Smoking Status: Never smoker Past Alcohol Use History: None Reported Past Drug Use History: None Reported Medications and Allergies Home Medications Medication Instructions Recorded Confirmed Type Levothyroxine Sodium [Synthroid] 112 mcg PO DAILY 08/20/14 06/25/22 History Metoprolol Succinate [Metoprolol 25 mg PO DAILY 06/25/22 06/25/22 History Succinate ER] QUEtiapine [SEROquel] 12.5 mg PO HS 06/25/22 06/25/22 History Allergies Allergy/AdvReac Type Severity Reaction Status Date / Time No Known Allergies Allergy Verified 06/25/22 11:44 Physical Examination - Vital Signs Vital Signs: Vital Signs Temp Pulse Resp BP Pulse Ox 06/25/22 08:21 97.7 F 65 18 158/80 98 Intake and Output 06/25/22 06/25/22 06/25/22 06:59 14:59 22:59 Other: Weight 60.328 kg Patient is an elderly female, in no acute distress. Patient is alert awake. Patient states is May and the year is . She s tates that she is in [facility] in [place]. She states that she lives in [place]. She couldn't tell name of the current president, although she knows the last president was Sylwia, and after prompting she was able to tell Mr. Hackett. Speech and language functions are normal. Patient can name and repeat very well. No aphasia or dysarthria. Attention, concentration intact and fund of knowledge is limited. On cranial nerve examination, pupils are equal, round and reacting to light, visual rowe are full on confrontation, with no neglect on double simultaneous stimulation. Extraocular muscles are intact with no nystagmus. Patient has bilateral ptosis. Face is symmetric, tongue protrudes to the midline. Palatal elevation and sensation normal, hearing and shoulder shrug normal, facial sensation normal. On muscle strength testing, there is no pronator drift and the strength is normal in arms and legs distally and proximally. Deep tendon reflexes are symmetric overall diminished and plantars are withdrawal bilaterally. Sensory to touch is equal with no neglect on double simultaneous stimulation. Cerebellar function showed no ataxia for [id number] testing, although patient was tremulous bilaterally. Tone and bulk of muscles normal. Gait deferred.. On general examination, there is no carotid bruit or murmur, S1-S2 audible. Chest is clear on consultation. Abdomen is soft nontender. No organomegaly, bowel sounds present. Peripheral pulses are present. there is mild peripheral edema. Results - Laboratory Findings CBC and BMP: 06/25/22 08:36 06/25/22 08:36 Abnormal Lab Findings: Abnormal Labs 06/25/22 06/25/22 06/25/22 08:36 08:36 08:36 Lymphocytes # 0.6 L BUN 30 H Creatinine 1.12 H Glucose 107 H AST 40 H Alkaline Phosphatase 154 H Troponin I Urine Blood Small H Urine Bacteria Rare H 06/25/22 06/25/22 08:36 12:20 Lymphocytes # BUN Creatinine Glucose AST Alkaline Phosphatase Troponin I 0.036 H* 0.042 H* Urine Blood Urine Bacteria Assessment and Plan Assessment: * Altered mental status, possible delirium. 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 * Hypertension * Hypothyroidism Plan: * Records from [facility] from 07/01/2022 as below. * Lipid panel with cholesterol 213, LDL 119, HDL 86 and triglycerides 42 on 1 08/24/2021. * Hemoglobin A1c 5.8 06/23/2022. * CT head revealed marked generalized atrophy. Mild chronic ischemic white matter demyelination. No acute bleed or mass effect. * Carotid Doppler 06/23/2022 showed no evidence of hemodynamically significant stenosis of bilateral ICA. Mild to moderate intraluminal plaque was visualized in bilateral carotid artery bulbs. The left and right vertebral arteries are patent with antegrade flow. * 2-D echo from 06/23/2022 revealed left ventricular size and systolic function is normal. Mild concentric LVH. Mild to moderate mitral and mild tricuspid regurgitation. No pericardial effusion. Bubble study does not demonstrate any shunt. Left atrial size is normal. * PLAN: * Check EEG to rule out epileptiform activity versus encephalopathy. * Psychiatric consultation for hallucinations related to dementia. * We will start Aricept 5 mg daily. * Neurology will follow. Thank you for the consult.
[2022-06-25] MEDS: THIAMINE 100 MG TAB PO SCH (19:11)
--- NOTE | 2022-06-26 00:01 | HP ---
HISTORY AND PHYSICAL CHIEF COMPLAINT: Fall and confusion. HISTORY OF PRESENT ILLNESS: This is an 89-year-old woman with a past medical history of multiple medical problems including dementia, history of DVT, hypertension, was recently in the [facility]. Currently, the patient is in ECF, but the patient was found to be lying down and covered in urine. Patient is confused. Patient came to [facility] and was admitted for evaluation and treatment. Apparently, the patient also had some aggressive behavior recently. The patient was started on Seroquel with not much efficiency. Troponins elevated. The patient was found to be dehydrated. There is no history of any fever, rigors, or chills, most of the history is taken from discussion with the ER physician and review of chart and discussion with staff. The patient is confused. PAST MEDICAL HISTORY: Reviewed include DVT, dementia, the rest of the history and rest of the chart is also reviewed. HOME MEDICATIONS: Reviewed include Seroquel, the rest of the medication doses are reviewed. ALLERGIES: None. Family history, social history, and review of systems could not be taken because of the patient's confusion. PHYSICAL EXAMINATION: VITAL SIGNS: Pulse is 65, blood pressure 158/80, respirations 18. HEENT: Conjunctivae normal. NECK: No jugular venous distention. CARDIOVASCULAR: S1, S2 muffled. RESPIRATION: Diminished breath sounds at the basis. No rhonchi, no crackles. ABDOMEN: Soft, nontender. LEGS: No edema. NERVOUS SYSTEM: Diffusely weak. SKIN: No rash. JOINTS: No active deforming arthropathy. LABS: Reviewed. ASSESSMENT: 1. Dehydration and fall. 2. Change in mental status, possible dementia with behavior disturbances. 3. Troponin 0.036, rule out acute som-IX-[id number]-elevation myocardial infarction. 4. Hypertension. 5. Multiple medical issues. 6. Gait dysfunction. RECOMMENDATIONS: The 89-year-old woman presented with multiple complex medical issues. At this time, I recommended to continue with the current medications, continue with symptomatic treatment. I would get neurology as well as psychiatric evaluation. Cardiology also will be consulted for elevated troponin. A 2D echo with Doppler. Prognosis guarded because of multiple complex medical issues. For further medications see orders for details. Home medications will be continued once they are confirmed. The patient requires more than 2 nights stay in the hospital. MMODL / IJN: [id number] /
[2022-06-26] MEDS: DONEPEZIL 5 MG TAB PO SCH ×2 (01:35→20:29)
[2022-06-26] MEDS: THIAMINE 100 MG TAB PO SCH ×2 (06:45→16:47)
[2022-06-26] MEDS: LEVOTHYROXINE 112 MCG TAB PO SCH (06:45)
[2022-06-26] MEDS: METOPROLOL SUCCINATE (ER) 25 MG TAB.ER.24H PO SCH (08:20)
[2022-06-26 09:08] LABS: Basophils % (A) 1 %; Eosinophils # (A) 0.3 k/uL (0-0.7); Eosinophils % (A) 7 %; HCT 42.4 % (34.0-46.0); HGB 14.3 gm/dL (11.4-16.0); Lymphocytes # (A) 0.7 k/uL (1.0-4.8); Lymphocytes % (A) 15 %; MCH 33.8 pg (25.0-35.0); MCHC 33.8 g/dL (31.0-37.0); Mean Platelet Volume 9.9; Monocytes # (A) 0.3 k/uL (0-1.0); Monocytes % (A) 6 %; Neutrophils # (A) 3.5 k/uL (1.3-7.7); Neutrophils % (A) 70 %; RBC 4.24 m/uL (3.80-5.40); RDW 13.7 % (11.5-15.5); WBC 4.9 k/uL (3.8-10.6)
--- NOTE | 2022-06-26 09:11 | P.CRDCN ---
History of Present Illness Consult date: 06/26/22 Requesting physician: Lisa Laguerre Reason for Consult (text): elevated troponin Chief complaint: confusion History of present illness: This is a pleasantly confused 89-year-old female patient with a dementia recently admitted to [facility] with delirium, prior DVT previously on warfarin which has been discontinued due to frequent falls, hypothyroidism and hypertension. Denies any past history of cardiac issues. She was recently admitted to the [facility] with altered mental status and at that time underwent echocardiogram with Doppler study that revealed normal LV systolic function with mild concentric LVH, mild to moderate MR, mild TR, no pericardial effusion, bubble study did not demonstrate any shunt. The patient does not recall why she is here now she says she went the wrong person's house and EMS was called. Upon reviewing the chart appears patient was found in her bathroom in her apartment and blue water large covered in urine. It is unclear how long the patient was down for. The patient does admit to falling quite frequently. She denies any complaints of dizziness or lightheadedness and has had no syncopal episodes as far she can recall but she does tend to slip her trip and fall frequently at home. She denies any loss of consciousness. EKG on admission showed sinus rhythm with a right bundle branch block. Blood pressure was initially elevated but better this morning. We were asked to see the patient in consultation for elevation of the troponins which came back at 0.036, 0.042 and 0.050. Patient denies any complaints of chest discomfort or history of chest discomfort. Other laboratory values showed a BUN of 30 and creatinine 1.12 which appear to be at her baseline. Upon examination she is resting comfortably in bed. Other than complaints of swelling and pain in her right knee she is overall feeling well this morning. She is concerned about missing her hair appointment tomorrow. She is alert and oriented 2. D enies any complaints of dyspnea on exertion, orthopnea or PND. She's had no lower extremity edema. Denies any chest pain, palpitations, syncope or near syncope. Past Medical History Past Medical History: Deep Vein Thrombosis (DVT), Hypertension, Thyroid Disorder History of Any Multi-Drug Resistant Organisms: None Reported Past Surgical History: Appendectomy Past Psychological History: No Psychological Hx Reported Smoking Status: Never smoker Past Alcohol Use History: None Reported Past Drug Use History: None Reported Medications and Allergies Home Medications Medication Instructions Recorded Confirmed Type Levothyroxine Sodium [Synthroid] 112 mcg PO DAILY 08/20/14 06/25/22 History Metoprolol Succinate [Metoprolol 25 mg PO DAILY 06/25/22 06/25/22 History Succinate ER] QUEtiapine [SEROquel] 12.5 mg PO HS 06/25/22 06/25/22 History Allergies Allergy/AdvReac Type Severity Reaction Status Date / Time No Known Allergies Allergy Verified 06/25/22 11:44 Physical Exam Vitals: Vital Signs Temp Pulse Pulse Resp BP BP Pulse Ox 06/26/22 07:34 97 06/26/22 04:00 70 19 135/79 96 06/25/22 21:58 98 F 63 18 151/66 99 06/25/22 21:43 74 18 136/94 96 06/25/22 19:00 73 18 179/85 96 Intake and Output 06/25/22 06/26/22 06/26/22 22:59 06:59 14:59 Other: Voiding Method External Catheter Weight 60.328 kg PHYSICAL EXAMINATION: This is a 89-year-old female in no apparent distress at the time of my examination. HEENT: Head is atraumatic, normocephalic. Pupils are equal, round. Sclerae anicteric. Conjunctivae are clear. Mucous membranes of the mouth are moist. Neck is supple. There is no elevated jugular venous pressure. No carotid bruit is heard. CHEST EXAMINATION: Clear to auscultation bilaterally. No wheezes rales or rhonchi. Respirations even and nonlabored. HEART EXAMINATION: Heart regular, positive S1 and S2. No S3. No S4. Soft systolic murmur. ABDOMEN: Soft, nontender. Bowel sounds are heard. No organomegaly noted. EXTREMITIES: 2+ peripheral pulses with no evidence of peripheral edema and no calf tenderness noted. NEUROLOGIC EXAMINATION: Patient is awake, alert and oriented x2. Results 06/25/22 08:36 06/25/22 08:36 Cardiac Enzymes 06/25/22 06/25/22 06/25/22 Range/Units 08:36 08:36 12:20 AST 40 H (14-36) U/L Troponin I 0.036 H* 0.042 H* (0.000-0.034) ng/mL 12/14/22 Range/Units 17:35 AST (14-36) U/L Troponin I 0.050 H* (0.000-0.034) ng/mL Coagulation 06/25/22 Range/Units 08:36 PT 10.7 (9.0-12.0) sec APTT 22.3 (22.0-30.0) sec CBC 06/25/22 Range/Units 08:36 WBC 5.7 (3.8-10.6) k/uL RBC 3.85 (3.80-5.40) m/uL Hgb 12.8 (11.4-16.0) gm/dL Hct 37.5 (34.0-46.0) % Plt Count 156 (150-450) k/uL Comprehensive Metabolic Panel 06/25/22 Range/Units 08:36 Sodium 138 (137-145) mmol/L Potassium 4.5 (3.5-5.1) mmol/L Chloride 107 (98-107) mmol/L Carbon Dioxide 24 (22-30) mmol/L BUN 30 H (7-17) mg/dL Creatinine 1.12 H (0.52-1.04) mg/dL Glucose 107 H (74-99) mg/dL Calcium 8.8 (8.4-10.2) mg/dL AST 40 H (14-36) U/L ALT 16 (4-34) U/L Alkaline Phosphatase 154 H (38-126) U/L Total Protein 6.3 (6.3-8.2) g/dL Albumin 3.8 (3.5-5.0) g/dL Current Medications Generic Name Dose Route Start Last Admin Trade Name Louisa PRN Reason Stop Dose Admin Donepezil HCl 5 mg 06/25/22 23:45 06/26/22 01:35 Donepezil 5 Mg Tab PO Not Given HS [facility] Folic Acid 1 mg 06/26/22 12:00 Folic Acid 1 Mg Tab PO DAILY@1200 [facility] Levothyroxine Sodium 112 mcg 06/26/22 06:30 06/26/22 06:45 Levothyroxine 112 Mcg Tab PO 112 mcg DAILY@0630 [facility] Administration Metoprolol Succinate 25 mg 06/26/22 09:00 06/26/22 08:20 Metoprolol Succinate (Er) 25 Mg Tab.Er.24h PO 25 mg DAILY [facility] Administration Multivitamins 1 each 06/26/22 12:00 Multivitamins, Thera 1 Each Tab PO DAILY@1200 [facility] Naloxone HCl 0.2 mg 06/25/22 11:49 Naloxone 0.4 Mg/Ml 1 Ml Vial IV Q2M PRN Opioid Reversal Thiamine HCl 100 mg 06/25/22 17:30 06/26/22 06:45 Thiamine 100 Mg Tab PO 100 mg BID-W/MEALS [facility] Administration Intake and Output 06/25/22 06/26/22 06/26/22 22:59 06:59 14:59 Other: Voiding Method External Catheter Weight 60.328 kg 06/25/22 08:36 06/25/22 08:36 Assessment and Plan Assessment: #1 altered mental status likely secondary to worsening dementia versus delirium #2 minimal troponin elevation, not indicative of acute coronary syndrome #3 hypertension #4 history of DVT previously on warfarin which has been discontinued #5 frequent falls Plan: From cardiology's perspective we will add a low-dose aspirin. At this time there is no need for further cardiac workup. We will follow the patient on an as-needed basis. Please do not hesitate to contact us with questions. ASSISTANT ASSOCIATE PROFESSOR note has been reviewed, I agree with a documented findings and plan of care. Patient was seen and examined.
[2022-06-26 09:20] LABS: Calcium 8.6 mg/dL (8.4-10.2)
[2022-06-26 09:27] LABS: Potassium 4.5 mmol/L (3.5-5.1)
[2022-06-26 10:30] LABS: Platelet Count 97 k/uL (150-450)
[2022-06-26] MEDS ORDERED: QUEtiapine 25 MG TAB PO PRN (14:25)
--- NOTE | 2022-06-26 14:59 | P.CN ---
Psychiatric Consult - . Consult date: 06/26/22 Consult:: 06/26/22 12:11 IDENTIFYING DATA: This patient is a 89-year-old female currently lives alone and has no kids and is unmarried. REASON FOR REFERRAL: Psychiatry was consulted for "dementia, agitation" HISTORY OF PRESENT ILLNESS: The patient presented to the hospital on 06/25 and apparently was found on the ground covered in urine in the bathroom. Was unclear whether patient had a fall at home or not. Patient had elevated t roponins 3 on initial laboratory, negative urine drug screen, computed tomography scan or brain did not show any acute changes or hemorrhages according to read her for discharge generalized atrophy. Neurology has been consulted and following along and believes the patient has altered mental status and possibly delirium, cardiology also on board for elevated troponins. EEG is pending at this time. There is taking care patient states that she has been bizarre at times agitated and apparently was endorsing visual hallucinations earlier today. Patient was seen sitting upright in her bed and trying to eat her lunch. Patient was agitated, demanding and irritable with selling underwriter. Patient was complaining significantly about her food and also having knee pain. She states that "I can't get help around here" and was complaining of the nurses while neglecting her. She was fairly animated, loud and demanding, also appeared fairly frustrated. She knew her name, her correct age and date of . She believes that she was in "[facility]", she does not know today's date. She is denying any depression or anxiety at this time. Claims that her sleep has been on and off, denying any paranoia at this time. Fair attention span. Poor impulse control and frustration tolerance. At this time patient denies any suicidal or homical ideations, intent or plan. Patient denies any current a uditory, visual hallucinations and denies any paranoia or delusions. Patients admits to using recreational drugs or cigarettes. PAST PSYCHIATRIC HISTORY: Patient has a a history of dementia. Patient denies being on any psychiatric medications except for being recently started on Aricept for memory. Patient denies any previous psychiatric hospitalizations. Patient denies any psychiatric outpatient follow-up. Patient denies any history of suicide attempts in the past. Past Medical History: Deep Vein Thrombosis (DVT), Hypertension, Thyroid Disorder History of Any Multi-Drug Resistant Organisms: None Reported ALLERGIES: as per EMR. CHEMICAL DEPENDENCY HISTORY: as per HPI. FAMILY PSYCHIATRIC/SUBSTANCE USE HISTORY: denies SOCIAL HISTORY: Patient was born and raised in [place], she completed high school degree, used to work in a [employer] company, she has and is unmarried. Currently lives alone. Denies any history of legal problems. MENTAL STATUS EXAM: General Appearance: Patient appears to be sitting in her bed, eating lunch, stated age is alert, argumentative and irritable, not cooperative. Patient appears to have fair hygiene and grooming wearing hospital gown with fair eye contact. Behavior: Patient is calmly lying in bed without any agitated behavior. Irritable, argumentative. Speech: Patient's speech is fluent and nonpressured. Out at times. Demanding. Mood/Affect: Patient reports their mood is "fine", affect is congruent Suicidality/Homicidality: Patient denies having any suicidal or homicidal ideation intent or plan. Perceptions: Patient denies any visual hallucinations and denies any auditory hallucinations Though content/process: Complaining of multiple things, logical. No delusions. Memory and concentration: AOX to name only and believes that she is in "[facility]", is not know today's date. fair Attention span. Cannot spell "WORLD" backwards Judgment and insight: Chronically poor IMPRESSIONS: Demantia with behavioral disturbances PLAN: -At this time will continue to follow along to see if patient will meet inpatient sarah psych criteria or not. -Patient DOES NOT have decision making capacity at this time and is unable to reason through and communicate/appreciate the risks, benefits and alternatives to treatment. -Delirium precautions recommended with patient including - avoiding use of narcotics and INK MAKER sedatives, limit anticholinergic medications when possible, frequent re-orientation, minimize use of restraints, open window shades during the day and close them at night -Would recommend the following medication changes/additions: Start Depakote 250 mg twice a day for mood stabilization/aggression, Seroquel 25 mg twice a day when necessary for agitation, scheduled 25 mg daily at bedtime for mood stabilization/sleep. -Communicated plan to patient's nurse and to primary hospitalist about plan -Will continue to follow along to see if patient is improving or will meet criteria for inpatient geriatric psychiatric admission. if patient does not meet criteria then she will need senior living placement. -Please contact with any questions. 06/26/22 14:53
[2022-06-26] MEDS: DIVALPROEX 250 MG TABLET.DR PO SCH ×2 (16:47→20:29)
[2022-06-26] MEDS: ASPIRIN 81 MG PO SCH (16:47)
[2022-06-26] MEDS: MULTIVITAMINS, THERA 1 EACH TAB PO SCH (16:47)
[2022-06-26] MEDS: FOLIC ACID 1 MG TAB PO SCH (16:48)
[2022-06-26] MEDS ORDERED: QUEtiapine 25 MG TAB PO SCH (21:00)
--- NOTE | 2022-06-26 23:05 | EEG ---
ELECTROENCEPHALOGRAM REPORT PREAMBLE: This is an 89-year-old female with altered mental status. This study is performed to evaluate for any epileptiform activity versus encephalopathy. EEG FINDINGS: This is a 21-channel digital EEG recorded with video component, utilizing 10/20 international system with referential and bipolar montages. Background consists of well-developed, moderately well regulated, mixed frequencies of 8 hertz alpha, mixed with some theta activity seen in bihemispheric region. Background is posterior dominant and reactive to eye opening and closing. Photic driving response was seen with some flash frequencies. Drowsiness was seen with appearance of bilaterally symmetric theta frequency rhythm. Some stage 2 sleep was seen with presence of sleep spindles and occasional vertex waves. No focal or generalized epileptiform activity was seen. IMPRESSION: This is a borderline abnormal EEG due to minimal background slowing. This is suggestive of mild generalized cerebral dysfunction, nonspecific etiology related to encephalopathy. No epileptiform activity was seen. MMODL / IJN: [id number] /
[2022-06-27 06:32] VITALS: TEMP 97.8
[2022-06-27] MEDS: THIAMINE 100 MG TAB PO SCH (06:32)
[2022-06-27] MEDS: LEVOTHYROXINE 112 MCG TAB PO SCH (06:32)
--- NOTE | 2022-06-27 08:08 | PN ---
PROGRESS NOTE DATE OF SERVICE: 06/26/2022 SUBJECTIVE: This 89-year-old woman was admitted with dehydration, fall, is getting EEG today. No chest pain. No palpitations. No fever. OBJECTIVE: VITAL SIGNS: Pulse is 70, blood pressure 130/70, respirations 19. HEENT: Conjunctivae normal. NECK: No JVD. RESPIRATIONS: Breath sounds diminished at the bases. ABDOMEN: Soft. NERVOUS SYSTEM: No focal deficits. LABS: Noted. Troponin noted. ASSESSMENT: 1. Dehydration and fall. 2. Change in mental status and possible dementia and behavioral disturbances. 3. Troponin 0.036, rule out acute [id number]-elevation myocardial infarction. 4. Hypertension. 5. Multiple medical issues. 6. Gait dysfunction. 7. FULL CODE. RECOMMENDATIONS: Recommend to continue current medications and symptomatic treatment. Otherwise, I recommend symptomatic treatment. Conservative line of management. Psychiatry input is awaited. Follow closely with Neurology, Cardiology. Prognosis guarded. Further recommendations to follow. Await EEG. MMODL / IJN: [id number] /
--- NOTE | 2022-06-27 09:51 | P.PN ---
Subjective Progress Note Date: 06/26/22 Patient was seen for a follow-up. Patient's caregivers were present today. They mentioned that patient was taking Coumadin for "blood clots". However she was not taking her medications in the right away, and was not getting her INRs checked regularly. Patient was also having frequent falls, therefore all these concerns led to stopping Coumadin and patient was placed on aspirin. Patient is very concerned why Coumadin is stopped. Objective - Vital Signs Vital signs: Vital Signs Temp 98 F 06/25/22 21:58 Pulse 70 06/26/22 04:00 Resp 19 06/26/22 04:00 BP 135/79 06/26/22 04:00 Pulse Ox 97 06/26/22 07:34 FiO2 Intake & Output 06/25/22 06/26/22 06/26/22 18:59 06:59 18:59 Intake Total 240 Output Total 250 Balance -250 240 Weight 60.328 kg 60.328 kg Intake: Oral 240 Output: Urine 250 Other: Voiding Method External Catheter # Bowel Movements 2 - Exam Patient is alert and awake, having her dinner. In no distress. Speech and language functions are normal. Muscle strength is normal. Patient has bilatera l ptosis. - Labs CBC & Chem 7: 06/26/22 07:39 06/26/22 07:39 Labs: Abnormal Lab Results - Last 24 Hours (Table) 06/25/22 06/26/22 06/26/22 Range/Units 17:35 07:39 07:39 Plt Count 97 L (150-450) k/uL Lymphocytes # 0.7 L (1.0-4.8) k/uL Chloride 111 H (98-107) mmol/L Carbon Dioxide 19 L (22-30) mmol/L BUN 23 H (7-17) mg/dL Troponin I 0.050 H* (0.000-0.034) ng/mL Assessment and Plan Assessment: * Altered mental status, possible delirium. 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 * Hypertension * Hypothyroidism Plan: * Records from [facility] from 07/01/2022 as below. * Lipid panel with cholesterol 213, LDL 119, HDL 86 and triglycerides 42 on 06/23/2022. * Hemoglobin A1c 5.8 06/23/2022. * CT head revealed marked generalized atrophy. Mild chronic ischemic white matter demyelination. No acute bleed or mass effect. * Carotid Doppler 06/23/2022 showed no evidence of hemodynamically significant stenosis of bilateral ICA. Mild to moderate intraluminal plaque was visualized in bilateral carotid artery bulbs. The left and right vertebral arteries are patent with antegrade flow. * 2-D echo from 06/23/2022 revealed left ventricular size and systolic function is normal. Mild concentric LVH. Mild to moderate mitral and mild tricuspid regurgitation. No pericardial effusion. Bubble study does not demonstrate any shunt. Left atrial size is normal. * PLAN: * EEG was borderline abnormal due to minimal background slowing. This is suggestive of mild generalized cerebral dysfunction, nonspecific etiology, perhaps related to mild encephalopathy. No epileptiform activity was seen. * Psychiatry seen the patient, agreeing with dementia with behavioral disturbance. * Continue Aricept 5 mg daily. After 4 weeks, may optimize dose to 10 mg. Recommend patient follow up with neurologist as an outpatient. * Neurologically clear for discharge.
[2022-06-27] MEDS: METOPROLOL SUCCINATE (ER) 25 MG TAB.ER.24H PO SCH (10:02)
[2022-06-27] MEDS: DIVALPROEX 250 MG TABLET.DR PO SCH (10:02)
[2022-06-27] MEDS: ASPIRIN 81 MG PO SCH (10:02)
--- NOTE | 2022-06-27 12:24 | CDI ---
Documentation Clarification Form Date: 06/27/2022 11:32:00 AM From: Iwona Beasley RN, CCDS Admit Date: 06/25/2022 11:49:00 AM Patient Name: Linn Sumner Visit Number: [id number] Discharge Date: ATTENTION: The Clinical Documentation Specialists (CDI) and [facility] Coding Staff appreciate your assistance in clarifying documentation. Please respond to the clarification below the line at the bottom and electronically sign. The CDI & [facility] Coding staff will review the response and follow-up if needed. Please note: Queries are made part of the Legal Health Record. If you have any questions, please contact the author of this message via ITS. Dr. Tatum Anne Dementia with behavior disturbance is documented in progress note on 06/27/22. Additional clarification regarding the type of dementia is requested. Patient history/risk factors: DVT, HTN, Thyroid disorder, dementia Clinical indicators: [id number] with altered mental status, fall brought in for agitation, hallucinations. Vital signs 141/96 74 18 06/25 Labs: WBC 5.7, BUN 30, Cr 1.12 Trop 0.036, 0.042, 0.050 CT Head/Clerical spine: No ac intracranial hemorrhage or midline shift Treatment: Cardiac/Telemetry monitoring Aricept 5 Mg PO daily Neuro checks per protocol Please clarify the type of dementia, if known: [ ] Alzheimers disease (specify if early(presenile) or late(senile) onset) [ ] Parkinsons disease [ ] Senile (specify if with or without confusional state) [ ] Vascular (specify if arteriosclerosis or sequel of cerebrovascular disease) [ ] Lewy body [ ] Other condition or cause of dementia, please specify [ ] Unable to determine Please indicate any behavioral disturbances associated with the condition (such as aggression, combative or wandering) (Template Last Revised: September 2020) 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 Alzheimer's disease with behavioral disturbance also in the differential. Please let me know if you have any further concerns. Thank you. Tatum Anne MD [facility]IT[facility]an
[2022-06-27 13:12] VITALS: BP 115/65; PULSE 84; RESP 18
--- NOTE | 2022-06-27 13:36 | P.PN ---
Progress Note - Text Progress Note Date: 06/27/22 Interval History: Patient was seen today for psychiatric follow-up. Patient was started on Depa kote and Seroquel since yesterday and has been taking her pills. Patient was mildly more pleasant today with commercial loan underwriter however continues to have some baseline irritability. She somewhat recognized commercial loan underwriter from yesterday. She answered most questions appropriately. She knows her name, her age date of however does not know the correct location. She believes that she is" [facility]" and also believes that it is May 2022 for the date. She is denying any depression or anxiety at this time. Claims that she slept last night however was not sure how long. Claims that she has been eating her meals. At this time patient denies any suicidal or homical ideations, intent or plan. Patient denies any current auditory, visual hallucinations and denies any paranoia or delusions. Patient denies any side effects from the medications and has been compliant with meds. Mental Status Exam: General Appearance: Patient appears to be sitting in her bed, eating lunch, stated age is alert, less irritable, attempts to cooperate. Patient appears to have fair hygiene and grooming wearing hospital gown with fair eye contact. Behavior: Patient is calmly lying in bed without any agitated behavior. improving Irritability. attempts to cooperate Speech: Patient's speech is fluent and nonpressured. Out at times. Demanding. Mood/Affect: Patient reports their mood is "ok", affect is congruent mildly irritable. Suicidality/Homicidality: Patient denies having any suicidal or homicidal ideation intent or plan. Perceptions: Patient denies any visual hallucinations and denies any auditory hallucinations Though content/process: Complaining of multiple things, logical. No delusions. Memory and concentration: AOX to name only and believes that she is in "[facility] that it is may 2022. fair Attention span. Judgment and insight: Chronically poor, improving mildly IMPRESSIONS: Demantia with behavioral disturbances PLAN: -At this patient does not meet criteria for inpatient psychiatric hospitalization. -Patient DOES NOT have decision making capacity at this time and is unable to reason through and communicate/appreciate the risks, benefits and alternatives to treatment. -Delirium precautions recommended with patient including - avoiding use of narcotics and MAINTENA[employer]CE TRUCK [employer]IVER sedatives, limit anticholinergic medications when possible, frequent re-orientation, minimize use of restraints, open window shades during the day and close them at night -Would recommend the following medication changes/additions: Continue Depakote 250 mg twice a day for mood stabilization/aggression, increase Seroquel 37.5 mg daily at bedtime for mood stabilization/sleep. -Communicated plan to patient's nurse and to primary hospitalist about plan -At this time psychiatry will sign off. -commercial loan underwriter spoke with care givers outside and answered questions about meds and treatment along with care. They claim that patient usually is irritable in the mornings but did better last evening. -Please contact with any questions.
[2022-06-27] MEDS ORDERED: MELATONIN 3 MG TABLET PO PRN (13:37)
[2022-06-27] MEDS: FOLIC ACID 1 MG TAB PO SCH (14:51)
[2022-06-27] MEDS: MULTIVITAMINS, THERA 1 EACH TAB PO SCH (14:51)
[2022-06-27] MEDS ORDERED: QUEtiapine 25 MG TAB PO SCH (21:00)
--- NOTE | 2022-06-28 01:34 | DS ---
DISCHARGE SUMMARY FINAL DIAGNOSES: 1. Dehydration and fall, improved. 2. Change in mental status with dementia with behavioral disturbances. 3. Troponin 0.036 indeterminate. 4. Hypertension. 5. Multiple medical issues. 6. Gait dysfunction. 7. FULL CODE: DISCHARGE DISPOSITION: The patient will be discharged in stable condition with guarded prognosis. Discharge cleared by multiple consultants. HISTORY OF PRESENT ILLNESS: This is an 89-year-old woman with a past medical history of multiple medical problems, admitted with dehydration and fall. The patient was treated with multiple consultants including Cardiology as well as Psychiatry. Medications are adjusted. The patient improved significantly. PHYSICAL EXAMINATION: VITAL SIGNS: Stable. CARDIOVASCULAR: S1, S2. The patient will be discharged in stable condition with following advice and medications. The new medications added are: 1. Aspirin. 2. Depakote. 3. Multivitamin. 4. Seroquel. 5. Thiamin. 6. Aricept. 7. Folic acid. Please refer to the medication reconciliation sheet for list of medications. Follow up with Dr. Hastings and continue to monitor. MMODL / IJN: [id number] /
== END 2022-06-27 15:24 | disposition home health service (06) | DRG 641 ==
LOC: SUPCPDRO 08:18 → EC 08:18 → 4SSUR 11:49 → 3SCARD 14:15
PROVIDERS: ADMIT Hospitalist; ATTEND Hospitalist
DX: E86.0 Dehydration (principal); F03.B11 Unspecified dementia, moderate, with agitation; E03.9 Hypothyroidism, unspecified; E78.2 Mixed hyperlipidemia; R29.6 Repeated falls; Z91.81 History of falling; R77.8 Other specified abnormalities of plasma proteins; R26.9 Unspecified abnormalities of gait and mobility; G89.29 Other chronic pain; H02.403 Unspecified ptosis of bilateral eyelids; I08.1 Rheumatic disorders of both mitral and tricuspid valves; I10 Essential (primary) hypertension; I45.10 Unspecified right bundle-branch block; M19.90 Unspecified osteoarthritis, unspecified site; M85.80 Other specified disorders of bone density and structure, unspecified site; R32 Unspecified urinary incontinence; S00.83XA Contusion of other part of head, initial encounter; Z79.01 Long term (current) use of anticoagulants; Z79.890 Hormone replacement therapy; Z79.899 Other long term (current) drug therapy; Z86.718 Personal history of other venous thrombosis and embolism; Z91.83 Wandering in diseases classified elsewhere; Z60.2 Problems related to living alone
CPT/HCPCS: 36415; 70450; 71046; 72125; 80048; 80053; 80306; 81001; 82140; 84484; 85025; 85610; 85730; 93005; 94760; 95816; 96360; 99285